=== PATIENT | male | born 1950 | race African-American/Black ===

== ENCOUNTER 2016-11-23 11:17 | Observation (INO) | payer MEDICARE, MEDICAID ==
[2016-11-23 12:14] LABS: #Eosinphils 0.1 thou/uL (0.0-0.7); #Monocytes 0.4 thou/uL (0.11-0.59); #Neutrophils 2.7 thou/uL (1.40-6.50); %Basophils 0.5 % (0.0-1.0); %Eosinophils 1.8 % (0.0-10.0); %Lymphocytes 24.8 % (21.0-51.0); %Monocytes 8.6 % (0.0-10.0); Hematocrit 37.9 % (42.0-52.0); Mean Platelet Volume 7.4 fL (7.4-10.4); Red Blood Cell (RBC) Count 3.85 mill/uL (4.70-6.10); White Blood Cell (WBC) Count 4.2 thou/uL (4.8-10.8)
[2016-11-23 12:30] LABS: ALT (SGPT) 13 U/L (8-55); AST (SGOT) 21 U/L (5-34); Alkaline Phosphatase 49 U/L (40-150); Anion Gap 13 mmol/L (10-20); BUN (Urea Nitrogen) 12 mg/dL (8.4-25.7); Bilirubin, Total 0.4 mg/dL (0.2-1.2); Calc. Creatinine Clearance 0 mL/min (70-130); Calcium 9.1 mg/dL (7.8-10.44); Carbon Dioxide 23 mmol/L (23-31); Chloride 104 mmol/L (98-107); Estimated GFR-MDRD Greater than 90; Globulin 2.9 g/dL (2.4-3.5); Protein, Total 6.5 g/dL (5.8-8.1)
[2016-11-23 13:26] LABS: Bilirubin Negative (Negative); Blood, Urine Negative (Negative); Glucose, Urine (Dipstick) Negative (Negative); Ketone, Urine Negative (Negative); Nitrite Negative (Negative); Protein, Urine (Dipstick) Negative (Neg-Trace)
[2016-11-23 13:36] LABS: Amphetamine Not Detected (NotDetected); Methadone Not Detected (NotDetected); Methamphetamine Not Detected (NotDetected)
[2016-11-23 14:13] LABS: Troponin I Less than 0.010 ng/mL (< 0.028)
--- NOTE | 2016-11-23 15:03 | RAD ---
PORTABLE CHEST: History: Syncope. FINDINGS: Lungs are clear. No infiltrate. Heart and mediastinum appear normal. IMPRESSION: No acute abnormality identified. POS: [facility]
[2016-11-23 15:25] LABS: Troponin I Less than 0.010 ng/mL (< 0.028)
[2016-11-23 17:51] VITALS: BMI 18.8
[2016-11-23] MEDS ORDERED: Multivitamins, Adult 10 ML, Folic Acid 1 MG, Thiamine HCl 100 MG in Dextrose 5 %-0.45 %... IV SCH ×4 (18:00)
[2016-11-23 18:45] LABS: Troponin I Less than 0.010 ng/mL (< 0.028)
[2016-11-23] MEDS: Famotidine 20 MG TAB PO SCH (21:12)
[2016-11-23 21:41] LABS: Troponin I Less than 0.010 ng/mL (< 0.028)
[2016-11-23] MEDS: Sodium Chloride 0.9% 1,000 ML IV SCH (23:34)
[2016-11-24 05:01] LABS: Hematocrit 39.6 % (42.0-52.0); Mean Platelet Volume 7.9 fL (7.4-10.4); Neutrophil 44 % (42-75); Reactive Lymphocytes 2 % (0-10); Red Blood Cell (RBC) Count 3.98 mill/uL (4.70-6.10); White Blood Cell (WBC) Count 3.6 thou/uL (4.8-10.8)
[2016-11-24 05:25] LABS: ALT (SGPT) 13 U/L (8-55); AST (SGOT) 24 U/L (5-34); Alkaline Phosphatase 47 U/L (40-150); Anion Gap 12 mmol/L (10-20); BUN (Urea Nitrogen) 8 mg/dL (8.4-25.7); Calc. Creatinine Clearance 83 mL/min (70-130); Calcium 9.3 mg/dL (7.8-10.44); Carbon Dioxide 27 mmol/L (23-31); Chloride 106 mmol/L (98-107); Estimated GFR-MDRD Greater than 90; Globulin 2.7 g/dL (2.4-3.5); Magnesium 1.8 mg/dL (1.6-2.6); Phosphorus 3.6 mg/dL (2.3-4.7); Protein, Total 6.2 g/dL (5.8-8.1)
--- NOTE | 2016-11-24 06:35 | HP-2 ---
DATE OF ADMISSION: 11/23/2016 DATE OF SERVICE: 11/23/2016 ADMITTING ATTENDING: Dr. Madhavi Cuevas. LOCATION: [place], [place]. COSIGNER: Madhavi Cuevas DO PATIENT'S CODE STATUS: FULL. PRIMARY CARE PHYSICIAN: City carlos. ATTENDING PHYSICIAN: Madhavi Cuevas DO RESIDENT PHYSICIAN: Dr. Iron Mccain. HISTORIAN: Patient, EMS records, ER physician, [facility] staff. CHIEF COMPLAINT: \\\\"I passed out\\\\" found down by [facility] staff. HISTORY OF PRESENT ILLNESS: The patient is a 66-year-old male with a past medical history of schizo phrenia, who presented after being found down outside of the [facility] facility. Per [facility] staff, patient was making sonorous type breath sounds, slumped over, leaning against the wall when he was found. There was concern that the patient had stopped breathing temporarily. The patient reports that he f elt \\\\"cold sweats\\\\" and sat down and does not remember much after that. Additionally, he reports a flutter type feeling/pain in his chest. He rates the severity as \\\\"a little.\\\\" Per ER and EMS, he was down for reportedly 1 to 2 minutes and slowly gained consciousness. There was no ACLS or BL S was performed. No loss of bowel or bladder function. He denies nausea, vomiting, diarrhea, const ipation, change in vision. He reports some shortness of breath, mild chest pain, and reports some p ost-episode weakness. PAST MEDICAL HISTORY: Schizophrenia. PAST SURGICAL HISTORY: Unknown intra-abdominal surgery. ALLERGIES: No known drug allergies. MEDICATIONS: 1. Cogentin/benztropine 2 mg. 2. Invega 156 mg IM every 4 weeks. 3. Inderal 40 mg t.i.d. FAMILY HISTORY: Unknown. SOCIAL HISTORY: Patient has an approximately 80 pack year history. He reports that he drinks 4 to 5 beers a day for the last 40 years. Patient reports smoking \\\\"crack drugs\\\\" and taking pills. O ccupation: Patient states he works at \\\\"different jobs.\\\\" Marital status: Single. Number of ch ildren: One, . REVIEW OF SYSTEMS: General: Patient denies fever, chills, night sweats, and fatigue. Eyes: Patie nt denies vision changes. ENT: The patient denies nasal congestion or rhinorrhea. Respiratory: D enies cough or congestion. Complains of shortness of breath. Cardiovascular: Patient complains of chest pain, palpitations. Denies edema. Gastrointestinal: The patient denies nausea, vomiting, d iarrhea, constipation, abdominal pain. Genitourinary: The patient denies incontinence, dysuria. C omplains of polyuria. Musculoskeletal: Patient complains of pain. Denies tenderness or stiffness. Neuro: Patient complains of weakness and syncopal episode. Denies numbness. PHYSICAL EXAMINATION: VITAL SIGNS: On arrival, patient's blood pressure 131/87, pulse 75, respirations 18, T-max 98.1, pu lse oximetry 97 on room air, current weight 70.3 kilograms. GENERAL: Patient in no acute distress, well-developed, well-nourished. EYES: Pupils are equal, round, and reactive to light and accommodation. Extraocular muscles intact . Conjunctivae injected. ENT: Left TM, cerumen impaction. Right TM, pearly kumar without bulging or erythema. Oropharynx is within normal limits. NECK: Supple. No lymphadenopathy, no thyromegaly. CARDIOVASCULAR: Heart regular rate and rhythm. No murmurs or gallops. Radial pulses and pedal pul ses 2+. RESPIRATORY: Normal effort. Clear to auscultation bilaterally. No wheezing, rales, or rhonchi. N o retractions. SKIN: Warm and dry. No cyanosis. ABDOMEN: Soft and nontender. Normoactive bowel sounds in all 4 quadrants without masses or distent ion. EXTREMITIES: No clubbing, no cyanosis, no edema. MUSCULOSKELETAL: Structures within normal limits. Tone within normal limits. Muscular strength is 5/5 bilaterally. Patient has full range of motion of all extremities. NEURO: There are no focal deficits. Sensation is within normal limits. Cranial nerves II through XII are intact. GCS 15. PSYCHIATRIC: Patient has elevated mood. LABORATORY DATA AND DIAGNOSTIC STUDIES: White blood cells 4.2, hemoglobin 12.7, hematocrit 37.9, pl atelets 166. Sodium 136, potassium 4.2, chloride 104, bicarbonate 23, BUN 12, creatinine 0.89, gluc ose 97, calcium 91, total protein 6.5, albumin 3.6, AST 21, ALT 13, alkaline phosphatase 49, total b ilirubin 0.4, MCV is 98.6, CK is 453, CK-MB is 3.0. Troponins are less than 0.010. EKG showed normal sinus rhythm. Chest x-ray showed no acute cardiothoracic process. Urine drug screen was positive for cocaine. ASSESSMENT AND PLAN: 1. Syncope. Admit the patient to telemetry. Repeat cardiac enzymes x3. We will check a magnesium and phosphorus in the morning. Echo ordered in the morning and pending. 2. History of alcohol use. The patient will be admitted with ASE protocol, banana bag x1, 200 mL p er hour. Check folic acid and B12 in the morning. 3. History of drug abuse you. UDS positive for cocaine. Check RPR, human immunodeficiency virus, and hepatitis panel. Counseled on cessation. 4. Dehydration. CK is 453. Start normal saline at 100 mL per hour. Recheck a CK in the morning. Repeat CBC and CMP in the morning. 5. Macrocytic anemia. Check B12 and folate. 6. Gastrointestinal and deep venous thrombosis prophylaxis. The patient will be started on Pepcid 20 b.i.d. p.o. and placed in SCD compression.
[2016-11-24] MEDS: Famotidine 20 MG TAB PO SCH (08:34)
[2016-11-24] MEDS: Sodium Chloride 0.9% 1,000 ML IV SCH (08:39)
--- NOTE | 2016-11-24 08:47 | PDOC.FM ---
- Subjective Subjective: Pt denies cp, sob, nvdc. He states he feels good and is just hungry. No acute events overnight and heart monitor has shown normal sinus rhythm throughout the night. - Objective Vital Signs & Weight: Vital Signs (12 hours) Temp Pulse Resp BP BP BP BP 11/24/16 07:10 98.6 F 68 16 110/68 11/24/16 04:40 98.8 F 73 16 114/70 114/70 11/23/16 23:35 123/58 L 11/23/16 23:11 98.6 F 88 16 123/58 L 11/23/16 21:10 98.4 F 70 16 126/70 Pulse Ox 11/24/16 07:10 99 11/24/16 04:40 100 11/23/16 23:35 11/23/16 23:11 99 11/23/16 21:10 Weight Weight 69.49 kg I&O: 11/23/16 11/24/16 11/25/16 06:59 06:59 06:59 Intake Total 2347 Output Total 1000 Balance 1347 Result Diagrams: 11/24/16 03:45 11/24/16 03:45 <Iron Mccain - Last Filed: 11/24/16 08:46> - Objective Vital Signs & Weight: Vital Signs (12 hours) Temp Pulse Resp BP BP BP Pulse Ox 11/24/16 08:34 98.6 F 68 16 11/24/16 08:00 110/68 11/24/16 07:10 98.6 F 68 16 110/68 99 11/24/16 04:40 98.8 F 73 16 114/70 114/70 100 Weight Weight 69.49 kg I&O: 11/23/16 11/24/16 11/25/16 06:59 06:59 06:59 Intake Total 2347 Output Total 1000 Balance 1347 Result Diagrams: 11/24/16 03:45 11/24/16 03:45 <Duarte Nunez - Last Filed: 11/24/16 12:00> Phys Exam - Physical Examination Constitutional: NAD HEENT: moist MMs conjunctival injection Respiratory: no wheezing, no rales, no rhonchi, clear to auscultation bilateral Cardiovascular: RRR, no significant murmur, no rub Gastrointestinal: soft, non-tender, no distention, positive bowel sounds Musculoskeletal: no edema, pulses present Neurological: non-focal, moves all 4 limbs <Iron Mccain - Last Filed: 11/24/16 08:46> Dx/Plan (1) Syncope Code(s): R55 - SYNCOPE AND COLLAPSE Status: Acute (2) Drug abuse Code(s): F19.10 - OTHER PSYCHOACTIVE SUBSTANCE ABUSE, UNCOMPLICATED Status: Acute (3) Alcohol abuse Code(s): F10.10 - ALCOHOL ABUSE, UNCOMPLICATED Status: Acute - Plan Plan: troponins negative x3 nsr rhythm on monitor w/o st changes negative orthostatics likely 2/2 volume depletion w h/o drug use and elevated CK continue NS @ 100mls/hr ASE protocol for h/o alcohol use Echo taken and results pending vitals stable HIV, RPR Hep panel pending for h/o drug abuse macrocytic anemia, folate and b12 normal, stable <Iron Mccain - Last Filed: 11/24/16 08:46> Attending Addendum - Attending Addendum I personally evaluated the patient and discussed the management with Dr. Mccain I agree with the History, Examination, Assessment and Plan documented above with any addition or exceptions noted below. Patient back to baseline. Syncopal episode likely due to withdrawl of cocaine and dehydration. Likely d/c home today and f/u with ECHO results outpatient. <Duarte Nunez - Last Filed: 11/24/16 12:00>
[2016-11-24] MEDS ORDERED: Aspirin 81 mg Enteric Coated Tablet PO SCH (09:00)
[2016-11-24 12:09] VITALS: BP 109/67; TEMP 98.3
--- NOTE | 2016-11-25 13:15 | DIS-2 ---
DATE OF SERVICE: 11/24/2016 LOCATION: [place], [place]. COSIGNER: Duarte Nunez MD RESIDENT PHYSICIAN: Iron Mccain DO ADMITTING ATTENDING: Roxie Lewis MD DISCHARGE ATTENDING: Duarte Nunez MD CONSULTS: None. PROCEDURES: 1. Chest x-ray 11/23/2016 showed no acute abnormality. 2. Echocardiogram report performed on 11/24/2016 showed ejection fraction of 40%-45%, normal right ventricular size and function, normal heart structures and mild tricuspid regurgitation. PRIMARY DIAGNOSIS: Syncope. SECONDARY DIAGNOSES: 1. Altered mental status. 2. Schizophrenia. 3. Drug abuse. 4. Alcohol abuse. DISCHARGE MEDICATIONS: 1. Cogentin 2 mg tab. 2. Invega 156 mg IM every 28 days. DISCONTINUED MEDICATIONS: None. HISTORY OF PRESENT ILLNESS/HOSPITAL COURSE: The patient is a 66-year-old male who originally presen juanita on 11/23/2016 after being found outside [facility] facility on the ground unresponsive. There is conc kamron with the staff that the patient had stopped breathing. The patient reports he \\\\"passed out.\\\\" Per [facility] staff, patient was making sonorous type breath sounds. He was slumped over and leaning a gainst the wall when he was found. Prior to the episode, the patient reported \\\\"cold sweats\\\\" and a flutter type sensation in his chest. Per EMS and ER reports, he was down to approximately 1-2 mi nutes and regained consciousness in the ambulance. There is no loss of bowel or bladder function. He denied nausea, vomiting, diarrhea, constipation, chest pain. On original admission, the troponin s and cardiac enzymes were negative, less than 0.010 and CK-MB was 3. Urine drug screen was positive for cocaine and the patient does admit to smoking \\\\"a crack rock.\\\\" The patient was monitored on telemetry overnight and echocardiogram was performed. The event han tor showed no abnormal rhythms throughout the 24-hour period. Patient's RPR was nonreactive. Hepatitis A antibody total was positive. Hepatitis B surface antige n was negative. Hepatitis B surface antibody negative, hepatitis B core total antibody was nonreact mynor, hepatitis B surface antibody was nonreactive. HIV 1 and 2 antibodies were nonreactive. The chong jacob's hepatitis B surface antibody index was 0.59 placing the patient in a nonimmune hepatitis B s tatus. DISPOSITION: The patient left the hospital in stable condition. DISCHARGE INSTRUCTIONS: 1. Location: Home. 2. Diet: Heart healthy. 3. Activity: As tolerated. 4. Followup: Follow up with the primary care provider in 7-10 days. 5. Followup with [facility] as scheduled.
--- NOTE | 2016-11-27 16:57 | EKG ---
Test Reason : Blood Pressure : / mmHG Vent. Rate : 074 BPM Atrial Rate : 074 BPM P-R Int : 158 ms QRS Dur : 094 ms QT Int : 386 ms P-R-T Axes : 076 065 075 degrees QTc Int : 428 ms Normal sinus rhythm Normal ECG Confirmed by GORDO ASTUDILLO, MEJIA Garcia (17), mapping editor IDA CONNELL ([id number]) on 11/27/2016 4:56:55 PM Referred By: Confirmed By:MEJIA CARO MD
== END 2016-11-24 15:45 | disposition home or self-care (01) ==
LOC: ERS 11:17 → 2SW 14:31
PROVIDERS: ADMIT Family Medicine; ATTEND Family Medicine
DX: R55 Syncope and collapse (principal); R41.82 Altered mental status, unspecified; F20.9 Schizophrenia, unspecified; F10.10 Alcohol abuse, uncomplicated; F14.10 Cocaine abuse, uncomplicated; F17.210 Nicotine dependence, cigarettes, uncomplicated; Z79.899 Other long term (current) drug therapy
CPT/HCPCS: 71010; 80053 ×2; 80061; 80306; 81003; 82140; 82550; 82553; 82607; 82746; 83735; 84100; 84484 ×2; 85007; 85025; 85027; 86704; 86706; 86708; 86780; 86803; 87340; 87389; 93005; 93306; 96361; 96365; 96366; 99285; G0378; 36415; G8996-GN-CI; G8997-GN-CI; J3411; J7042

== ENCOUNTER 2018-10-23 12:11 | Emergency (ER) | payer MEDICARE, MEDICAID | END 2018-10-23 14:30 | disposition home or self-care (01) | LOC: ERS 12:11 | DX: F10.10 Alcohol abuse, uncomplicated (principal); F17.220 Nicotine dependence, chewing tobacco, uncomplicated; F14.10 Cocaine abuse, uncomplicated; F12.10 Cannabis abuse, uncomplicated | CPT/HCPCS: 94760 ==

== ENCOUNTER 2019-11-26 12:20 | Inpatient (IN) | payer MEDICARE, MEDICAID, OTHER ==
[2019-11-26 13:11] LABS: #Lymphocytes 0.5 thou/uL (1.20-3.40); #Monocytes 0.4 thou/uL (0.11-0.59); %Eosinophils 0.2 % (0.0-10.0); %Lymphocytes 12.5 % (21.0-51.0); %Monocytes 10.9 % (0.0-10.0); %Neutrophils 76.4 % (42.0-75.0); Hemoglobin 15.3 g/dL (14.0-18.0); Mean Corpuscular HGB CONC 34.4 g/dL (32.0-36.0); Mean Corpuscular Volume 93.1 fL (78.0-98.0); Mean Platelet Volume 8.6 fL (7.4-10.4); Platelet Count 206 thou/uL (130-400); RBC Distribution Width 11.3 % (11.5-14.5); Red Blood Cell (RBC) Count 4.79 mill/uL (4.70-6.10); White Blood Cell (WBC) Count 3.9 thou/uL (4.8-10.8)
[2019-11-26] MEDS ORDERED: Multivitamins, Adult 10 ML, Thiamine HCl 100 MG, Folic Acid 1 MG in Dextrose 5 %-0.45 %... IV SCH (13:15)
--- NOTE | 2019-11-26 13:30 | CT ---
CT head noncontrast HISTORY: Altered mental status. COMPARISON: 11/11/2008. FINDINGS: There is no evidence of acute intracranial hemorrhage or infarct. Mild chronic ischemic sma ll vessel disease most noticeable at the left frontal periventricular white matter. There is no mass effect or shift of midline structures. Mucosal thickening noted within the left sphenoid sinus. IMPRESSION : No acute intracranial abnormalities are demonstrated.
[2019-11-26 13:42] LABS: ALT (SGPT) 35 U/L (8-55); AST (SGOT) 50 U/L (5-34); Acetaminophen Less than 6.0 mcg/mL (10.0-30.0); Albumin 4.1 g/dL (3.4-4.8); Alcohol Less than 10 mg/dL (Less than 10); Alkaline Phosphatase 65 U/L (40-110); Anion Gap 16 mmol/L (10-20); BUN (Urea Nitrogen) 19 mg/dL (8.4-25.7); Bilirubin, Total 1.2 mg/dL (0.2-1.2); Calc. Creatinine Clearance 0 mL/min (70-130); Calcium 9.9 mg/dL (7.8-10.44); Carbon Dioxide 29 mmol/L (23-31); Chloride 88 mmol/L (98-107); Estimated GFR-MDRD 90; Globulin 3.4 g/dL (2.4-3.5); Glucose 133 mg/dL (80-115); Potassium 5.3 mmol/L (3.5-5.1); Protein, Total 7.5 g/dL (5.8-8.1); Salicylate Less than 8.0 mg/dL (15.0-30.0); Sodium 128 mmol/L (136-145)
[2019-11-26] MEDS ORDERED: Calcium Carbonate 500 MG ChewTAB PO PRN (15:27)
[2019-11-26] MEDS ORDERED: Guaifenesin DM 100-10/5 ML UDCUP PO PRN (15:27)
[2019-11-26] MEDS ORDERED: Acetaminophen 325 MG TAB PO PRN (15:27)
[2019-11-26] MEDS ORDERED: Bisacodyl 10 MG SUPP PR PRN (15:27)
[2019-11-26] MEDS ORDERED: Senokot S 8.6-50 MG TAB PO PRN (15:27)
--- NOTE | 2019-11-26 16:02 | HP ---
REASON FOR ADMISSION: Confusion, not eating or drinking for the last month and a half now, lethargy. HISTORY OF PRESENTING ILLNESS: Please note majority of this history is obtained by talking to ER physician, Dr. Traylor, as the patient is not a good historian. The patient is currently residing in [facility] for the last 2 months. He has not been eating or drinking from last month and a half and was also slow to respond there. As this was progressively getting worse, the patient was transferred here to the emergency room. PAST MEDICAL AND SURGICAL HISTORY: From prior records here, the patient has had history of schizophrenia and prior laparotomy. CURRENT MEDICATIONS: The patient does not recall any of his current medications. He states he is not taking any at the [facility] facility. Prior to which, he was filling his prescription [facility] in [place]. He is unable to give me an exact name for his pharmacy. We will try to obtain the same from [facility], who likely has seen him before. ALLERGIES: NO KNOWN DRUG ALLERGIES. PERSONAL HISTORY: Per prior records, the patient has used crack cocaine. Smoked before. FAMILY HISTORY: Says he is not , but per prior records, he has had a child, who is . CODE STATUS: Full. REVIEW OF SYSTEMS: Cannot be obtained accurately as the patient is not fully oriented. PHYSICAL EXAMINATION: GENERAL: The patient is a 69-year-old male, who is currently not in any acute distress. VITAL SIGNS: Blood pressure 124/86, pulse 90 per minute, respiratory rate 20 per minute, temperature 98.5 degrees Fahrenheit, and saturating 95% on room air. NECK: Supple. No elevated JVD. HEENT: Eyes; extraocular muscles intact. Pupils reacting to light. Oral cavity, mucous membranes are dry. No exudates or congestion. CARDIOVASCULAR SYSTEM: S1 and S2 heard. Regular rhythm. RESPIRATORY: Air entry 1+ bilateral. No rales or rhonchi. ABDOMEN: Soft. The patient appears to have a ventral hernia with prior surgical scar in the midline. No rigidity or guarding. EXTREMITIES: No peripheral edema or calf tenderness. VASCULAR SYSTEM: Peripheral pulses 1+ bilateral. No ischemic ulcers or gangrene. CENTRAL NERVOUS SYSTEM: No gross focal deficits noted. The patient is not fully oriented, but moves all 4 extremities. PSYCHIATRIC SYSTEM: No obvious hallucinations or delusions. LABORATORY DATA: CT brain without contrast done showed no acute intracranial abnormality. EKG done shows normal sinus rhythm at 89 beats per minute. There is poor R-wave progression seen. There are T inversions seen in V2 and V3. White count of 3.9, H and H 15 and 44, platelet count 206 with 76% neutrophils. Sodium 128, potassium 5.3, serum bicarb 29, BUN 19, creatinine 1.0, serum glucose 133. Lactic acid 2.3, AST 50, ALT 35. Plasma alcohol less than 10. CLINICAL IMPRESSION AND PLAN: The patient will be under observation on medical floor for progressive lethargy and confusion with poor oral intake from last 6 weeks [facility] so at the [facility]. We will also try to obtain his home medication list in view of his history of schizophrenia. The patient has had positive drug screen for cocaine until 2017 on our records. He appears to have moderate dehydration. He will be placed on lactated Ringer's at 100 mL per hour. We will obtain dietary consultation. He will be on a regular diet with chopped food as the patient has no teeth and does not have dentures. We will also place him on Megace 40 mg twice daily to stimulate appetite. A KUB x-ray to rule out any bowel obstruction as the patient has had prior abdominal surgery. His abdomen is not distended nor does he have any pain at present. We will obtain PT/OT evaluations as well to see if he can ambulate well. Job ID: [id number] [facility]
[2019-11-26 17:15] VITALS: BMI 17.6
[2019-11-26 17:42] LABS: Lactic Acid 1.7 mmol/L (0.5-2.2)
[2019-11-26] MEDS: Ondansetron PF 4 MG/2 ML Vial IVP PRN (17:44)
--- NOTE | 2019-11-26 18:04 | RAD ---
KUB: Date: 11-26-2019 PROVIDED CLINICAL HISTORY: Poor oral intake. FINDINGS: Comparison 06-01-16. There are several ectatic gas filled small bowel in the left midabdomen, and an overall nonspecific g as pattern. Stool and gas is seen within the colon. Multiple phleboliths overlies the pelvis. No radi ographically apparent urinary tract calculi. The single view nature of this examination is not sensit mynor for detection of pneumoperitoneum. The visualized lung bases appear clear. A cutaneous staple ove rlies the right upper quadrant. IMPRESSION: Nonspecific bowel gas pattern. POS: [facility]
[2019-11-26] MEDS: Megestrol Acetate 40 MG TAB PO SCH (20:59)
[2019-11-26] MEDS: Famotidine 20 MG TAB PO SCH (20:59)
[2019-11-27] MEDS: Ondansetron PF 4 MG/2 ML Vial IVP PRN ×2 (04:09→19:39)
[2019-11-27 05:40] LABS: #Lymphocytes 0.4 thou/uL (1.20-3.40); #Monocytes 0.1 thou/uL (0.11-0.59); #Neutrophils 0.9 thou/uL (1.40-6.50); %Basophils 0.2 % (0.0-1.0); %Eosinophils 0.3 % (0.0-10.0); %Lymphocytes 28.6 % (21.0-51.0); %Monocytes 8.2 % (0.0-10.0); %Neutrophils 62.6 % (42.0-75.0); Hemoglobin 13.5 g/dL (14.0-18.0); Mean Corpuscular HGB CONC 33.6 g/dL (32.0-36.0); Mean Corpuscular Hemoglobin 31.1 pg (27.0-31.0); Mean Corpuscular Volume 92.8 fL (78.0-98.0); Mean Platelet Volume 8.2 fL (7.4-10.4); Platelet Count 186 thou/uL (130-400); RBC Distribution Width 11.1 % (11.5-14.5); Red Blood Cell (RBC) Count 4.32 mill/uL (4.70-6.10); White Blood Cell (WBC) Count 1.5 thou/uL (4.8-10.8)
[2019-11-27 06:03] LABS: Anion Gap 13 mmol/L (10-20); BUN (Urea Nitrogen) 18 mg/dL (8.4-25.7); Calc. Creatinine Clearance 80 mL/min (70-130); Calcium 9.2 mg/dL (7.8-10.44); Carbon Dioxide 30 mmol/L (23-31); Chloride 91 mmol/L (98-107); Estimated GFR-MDRD Greater than 90; Glucose 153 mg/dL (80-115); Potassium 3.5 mmol/L (3.5-5.1); Sodium 130 mmol/L (136-145)
[2019-11-27] MEDS ORDERED: Metoclopramide HCl 10 MG/2 ML VIAL IVP PRN (06:11)
[2019-11-27] MEDS: Lactated Ringer's 1,000 ML IV SCH ×3 (07:49→22:04)
[2019-11-27] MEDS: Megestrol Acetate 40 MG TAB PO SCH ×2 (09:06→20:25)
[2019-11-27] MEDS: Enoxaparin Sodium 40 MG/0.4 ML SYRINGE SC SCH (09:06)
[2019-11-27] MEDS: Famotidine 20 MG TAB PO SCH ×2 (09:06→20:25)
[2019-11-27] MEDS ORDERED: Iopamidol 370 76% 100 ML VIAL ONE (10:55)
--- NOTE | 2019-11-27 12:33 | CT ---
CT OF THE ABDOMEN AND PELVIS WITH IV CONTRAST INDICATION: Schizophrenia, loss of appetite and lethargy COMPARISON: CT the abdomen and pelvis with contrast dated June 01, 2016 FINDINGS: ABDOMEN: Lung bases: There are small bilateral pleural effusions. There is airspace disease of the left lower lobe. Liver: No focal lesion. Gallbladder: Normal appearing. Pancreas: Normal. Adrenal glands: Normal. Spleen: Normal. Kidneys and ureters: Normal. No hydronephrosis. Vasculature: There are mild vascular calcifications seen involving the visualized vasculature. Lymph nodes:No lymphadenopathy. Free fluid in abdomen:No free fluid is evident. PELVIS: Small and large bowel: There are prominent dilated loops of small bowel with a suggested transition z one in the anterior mid abdomen on image 38 of the coronal series. There is some visualization of a dilated loop of jejunum just proximal to the transition zone. There is a moderate amount of retained stool and gas within the colon. There is postsurgical change of a partial small bowel resection the right lower quadrant with anastomosis. Appendix:Not definitely seen Bladder: Moderately distended Rectal and perirectal soft tissues:Prominent amount retained stool Reproductive structures: Prostate is enlarged measuring 7 cm Free fluid in pelvis: No free fluid is evident. Lymphadenopathy pelvis: No lymphadenopathy is evident. Osseous structures: No acute osseous abnormality. No destructive osteolytic or osteoblastic lesion i s identified. There is scattered degenerative and osteoarthritic changes. Soft tissues:Diffuse anasarca. There is an anterior upper midline abdominal wall hernia containing un obstructed portions of the transverse colon. IMPRESSION: 1. Findings suspicious for a moderate grade partial small bowel obstruction with a transition zone se en within the upper mid abdomen, left of midline. 2. Moderate distention of the bladder with prostate enlargement. Recommend consideration for Petty ca theter placement. 3. Left lower lobe airspace disease suspicious for pneumonia or aspiration. There are small bilateral pleural effusions. 4. Mild anasarca.
--- NOTE | 2019-11-27 12:44 | PDOC.HOSPP ---
- Subjective Encounter Date: 11/27/19 Encounter Time: 10:00 Subjective: feels nauseous this am no abd pain or sob - Objective Vital Signs & Weight: Vital Signs (12 hours) Temp Pulse Resp BP Pulse Ox 11/27/19 11:06 99.9 F H 89 17 117/66 96 11/27/19 08:00 98 11/27/19 07:52 98.7 F 89 18 134/74 98 11/27/19 04:11 97.3 F L 75 18 153/81 H 100 Weight Admit Weight 143 lb Weight 143 lb I&O: 11/26/19 11/27/19 11/28/19 06:59 06:59 06:59 Intake Total 250 Balance 250 Result Diagrams: 11/27/19 05:04 11/27/19 05:04 Hospitalist ROS - Medication Medications: Active Medications Generic Name Dose Route Start Last Admin Trade Name Freq PRN Reason Stop Dose Admin Enoxaparin Sodium 40 mg 11/27/19 09:00 11/27/19 09:06 Enoxaparin Sodium 40 Mg/0.4 Ml Syringe SC Not Given 0900 OLGA Famotidine 20 mg 11/26/19 21:00 11/27/19 09:06 Famotidine 20 Mg Tab PO Not Given BID OLGA Lactated Ringer's 1,000 mls @ 70 mls/hr 11/27/19 07:45 11/27/19 07:49 Lactated Ringer's IV 1,000 mls .[id number] OLGA Administration Megestrol Acetate 40 mg 11/26/19 21:00 11/27/19 09:06 Megestrol Acetate 40 Mg Tab PO Not Given BID OLGA Metoclopramide HCl 10 mg 11/27/19 06:11 11/27/19 06:23 Metoclopramide Hcl 10 Mg/2 Ml Vial IVP 10 mg Q6H PRN Administration Nausea/Vomiting Ondansetron HCl 4 mg 11/26/19 15:27 11/27/19 04:09 Ondansetron Pf 4 Mg/2 Ml Vial IVP 4 mg Q6H PRN Administration Nausea/Vomiting - Exam General Appearance: awake alert Eye: anicteric sclera ENT: no oropharyngeal lesions, dry oral mucosa Neck: supple, no JVD Heart: RRR, no gallops Respiratory: no wheezes, no rales Gastrointestinal: soft, no guarding, no rigidity Extremities: no cyanosis, no edema Neurological: cranial nerve grossly intact, no focal deficits Hosp A/P (1) SBO (small bowel obstruction) Code(s): K56.609 - UNSP INTESTNL OBST, UNSP TO PARTIAL VERSUS COMPLETE OBST Status: Acute (2) Acute metabolic encephalopathy Code(s): G93.41 - METABOLIC ENCEPHALOPATHY Status: Acute (3) FTT (failure to thrive) in adult Status: Chronic (4) Schizoaffective disorder Code(s): F25.9 - SCHIZOAFFECTIVE DISORDER, UNSPECIFIED Status: Chronic Qualifiers: Schizoaffective disorder type: unspecified - Plan CT abd results noted, shows signs of sbo, will consult gen surgery, keep him npo iv fluids change status to inpatient was on depot antipsychotic qmonthly shot with cogentin bid (has not taken it for 2 months now) hemostable no bm from yesterday poor historian, needs repeated prompts to get any answer
[2019-11-27 13:48] LABS: SARS-CoV-2 MS2 Positive; SARS-CoV-2 N Gene Positive; SARS-CoV-2 S Gene Negative; SARS-CoV-2 by NAA DETECTED (NotDetected); SARS-CoV-2 orf1ab Positive
--- NOTE | 2019-11-27 16:29 | RAD ---
Chest one view HISTORY: Pneumonia. COMPARISON: 11/23/2016. FINDINGS: Cardiac silhouette is magnified by projection. Pulmonary vasculature is unremarkable. Mediastinum is midline. No lobar consolidation or evidence of pneumothorax. Degenerative changes are apparent throughout the thoracic spine and shoulders. IMPRESSION : No active cardiopulmonary abnormalities are demonstrated.
--- NOTE | 2019-11-27 17:51 | RAD ---
KUB: 11/27/19 PROVIDED CLINICAL HISTORY: Abdominal pain. FINDINGS: Comparison is made with the examination dated 11/26/19. Further dilatation of gaseous distended small bowel loops in the left mid abdomen. As discussed on recently performed CT examination, this suggests small bowel obstruction. Please see that report. Contrast material is seen within the bladder. Gas a nd stool are seen within the colon. The supine nature of the examination is not sensitive for detecti on of pneumoperitoneum. IMPRESSION: As above. POS: [facility]
--- NOTE | 2019-11-27 21:06 | PDOC.BPN ---
- Brief Progress Note Encounter Date: 11/27/19 Encounter Time: 20:30 Patient was seen this evening for evaluation of small bowel obstruction. Patient reported "I'm feeling better." He refused evaluation by general surgery and asked for us to "come back later." Nursing reported patient has a bout of large volume bilious vomiting before my evaluation. He is NPO with IVF. Unable to complete physical exam as patient refusing. parole officer at bedside reports patient is able to refuse care at this time. Patient agrees to be seen by general surgery in the AM or again this evening if his condition worsens. We will increase his IVF rate to 100 mL/hr. Keep NPO. Dr. Sanchez was updated on the patient and agrees with plan. Maggie Bravo PA-C Trauma Surgery
--- NOTE | 2019-11-27 21:43 | CON ---
DATE OF CONSULTATION: 11/27/2019 REASON FOR CONSULTATION: COVID and number of other issues. HISTORY OF PRESENT ILLNESS: A 69-year-old, who suffers from schizophrenia. He was admitted in 2016 to this hospital and it apparently due to an unintentional overdose of propranolol but no suicidal ideation and he obviously had sinus bradycardia and some encephalopathy associated with it. Subsequently, one year later, he had altered mental state and basically, he was found on the ground unresponsive and looks like he was sleeping. No evidence of seizure activity was found. His urine drug screen was positive for cocaine. HIV negative. Hepatitis negative. He was released on Cogentin and Invega. This time, he looks like he was apprehended by the police and brought to the [facility] long term and it is not clear the rationale for doing that, but he has been there for the past 2 months with steady decline in his weight, not eating, so they brought him to the hospital here and BP was 120/87, pulse 90, respirations 20, and O2 saturations are 95%. He appeared confused, lethargic and right now, Mr. Crawford is shackled to the bed. He is cachectic and establishes eye contact very briefly. He is unable to provide any account of his subjected information, and I cannot obtain a review of systems. PAST MEDICAL HISTORY: Schizophrenia and that is the extent of his history. There is a reported history of epilepsy, was not verifiable. PAST SURGICAL HISTORY: I do not have any verifiable surgical history either. SOCIAL HISTORY: He apparently lives with family and drinks daily. Smokes as well. For the past 2 months, he is at [facility]. He was brought there by police and they dropped him there and they are trying to release him, but have not been very successful. ALLERGIES: NONE. CURRENT MEDICATIONS: 1. Dulcolax. 2. Tums. 3. Lovenox. 4. Megace. 5. Reglan. 6. Zofran. 7. Senokot. FAMILY HISTORY: I do not have any family history. PHYSICAL EXAMINATION: VITAL SIGNS: He has been afebrile since admission, BP 117/66, pulse 89, and respiratory rate 17. SKIN: There are areas of pressure damage to the presacral region, very shallow with fresh looking base. Peripheral IV access. He is voiding in the urinal/diaper. LYMPH: No lymphadenopathy. HEENT: Ocular movements conjugate. Sclerae are white. Pupils are 2 mm and reactive. Oral cavity; numerous missing teeth, almost all. Dentition is gone. Oral mucosa appears normal. No thrush. NECK: Supple. No jugular vein distention. LUNGS: Symmetric air entry. No crackles or wheezing. HEART: S1, S2. Regular rate. No S3 or S4. ABDOMEN: Soft. Does not appear to be tender. Little bit of distention in the mid abdominal area. Bowel sounds are present. No ascites. : Question of bladder distention. LABORATORY DATA: SARS-CoV was detected and his white cell count was 3.9, down to 1.5; hemoglobin 13.5; and platelets 186. He had 76% neutrophils, down to 62%. Sodium was 128, up to 130 and creatinine is 0.81. AST 50, ALT 35, albumin 4.1, and ammonia 22. Alcohol, acetaminophen, and salicylates; not detected. IMAGING DATA: Abdomen and pelvis CT from today with prominently dilated loops of small bowel with a suggested transition zone in the anterior mid abdomen, image 38. Moderate amount of retained stool and gas within the colon. The bladder was moderately distended. In the lungs, there was evidence of airspace disease, left side lower lobe. No chest x-ray has been done here at this time. ASSESSMENT: 1. Schizophrenia, poorly controlled. 2. Cachexia. 3. Small-bowel obstruction with transition zone. 4. Urinary retention with BPH. 5. SARS-CoV-2 antibody positive. DISCUSSION: Quite complex case, looks like he has been admitted to the [facility] long term by default due to the lack of any other resources for him to be admitted for proper psych evaluation. Now, he is SARS-CoV positive, probably acquired in long term now and in addition to that, he has the small bowel area obstruction, probably from adhesions and has urinary retention. I guess he will have to have surgical evaluation and need to repeat his postvoid residual scan to see if he is still retaining. In that case, he will need a Petty catheterization. Regarding the COVID, we will need to obtain a chest x-ray and inflammatory markers. At this moment, his O2 saturations are good in room air and he would merit any intervention in terms of antiviral or anti-inflammatory treatment at this moment, but this may change. The duration of illness is uncertain at this point. We do not have any possibility of determining with any precision how many days he has been ill from SARS-CoV-2 virus. Again, this is a seriously ill gentleman with severe psychiatric illness, who has been placed in the local long term obviously due to lack of other resources, he belongs in a medical/psych institution after his acute medical problems are cared for, not in long term, where he has been for 2 months now. Job ID: [id number] [employer] HEALTHCARERadha
[2019-11-28] MEDS: Ondansetron PF 4 MG/2 ML Vial IVP PRN (05:31)
[2019-11-28 06:05] LABS: Band 38 % (5-11); Hemoglobin 13.4 g/dL (14.0-18.0); Hypochromia SLIGHT = 6-15 cells (100X) (0-5/hpf); Lymphocytes 12 % (21-51); MDiff Complete? YES; Mean Corpuscular HGB CONC 32.1 g/dL (32.0-36.0); Mean Corpuscular Hemoglobin 29.8 pg (27.0-31.0); Mean Corpuscular Volume 92.8 fL (78.0-98.0); Mean Platelet Volume 8.6 fL (7.4-10.4); Monocytes 12 % (0-10); Neutrophil 38 % (42-75); Platelet Count 190 thou/uL (130-400); Platelet Morphology Comment Appears Adequate; RBC Distribution Width 11.3 % (11.5-14.5); Red Blood Cell (RBC) Count 4.51 mill/uL (4.70-6.10); White Blood Cell (WBC) Count 4.5 thou/uL (4.8-10.8)
[2019-11-28 06:11] LABS: Anion Gap 15 mmol/L (10-20); BUN (Urea Nitrogen) 23 mg/dL (8.4-25.7); Calc. Creatinine Clearance 82 mL/min (70-130); Calcium 9.5 mg/dL (7.8-10.44); Carbon Dioxide 26 mmol/L (23-31); Chloride 92 mmol/L (98-107); Estimated GFR-MDRD Greater than 90; Glucose 122 mg/dL (80-115); Magnesium 1.7 mg/dL (1.6-2.6); Potassium 3.9 mmol/L (3.5-5.1); Sodium 129 mmol/L (136-145)
[2019-11-28] MEDS: Lactated Ringer's 1,000 ML IV SCH ×3 (06:13→20:55)
[2019-11-28] MEDS: Enoxaparin Sodium 40 MG/0.4 ML SYRINGE SC SCH (08:16)
[2019-11-28] MEDS: Megestrol Acetate 40 MG TAB PO SCH (08:16)
[2019-11-28] MEDS: Famotidine 20 MG TAB PO SCH ×2 (08:16→20:55)
--- NOTE | 2019-11-28 11:10 | RAD ---
EXAM: XR Abdomen 2 View/1 View Cxr PROVIDED CLINICAL HISTORY: Small bowel obstruction. COMPARISON: Chest x-ray on 11/27/2019 and one view abdomen on 11/27/2019 FINDINGS: Mild increased interstitial densities are seen at the left lung base which may represent developing i nfectious process. There is no consolidation or pleural fluid seen. Cardiac silhouette and pulmonary vasculature are within normal limits. No free intraperitoneal gas is seen beneath the level of the hemidiaphragms. There are dilated fluid- filled loops of small bowel again seen in the left abdomen with suggestion of differential air-fluid levels. There is mild gaseous distention of the ascending and transverse colon. Multiple ph leboliths overlie the pelvis. Contrast previously seen urinary bladder is no longer visualized. Degenerative changes are seen in the spine. IMPRESSION: 1. Increased interstitial opacities left lung base which may be related to developing infectious proc ess. Follow-up evaluation is recommended. 2. Dilated loops of small bowel left abdomen with associated differential air-fluid levels concerning for partial small bowel obstruction. 3. Gaseous distention of the ascending and transverse colon.
--- NOTE | 2019-11-28 13:30 | PDOC.HOSPP ---
- Subjective Encounter Date: 11/28/19 Encounter Time: 08:00 Subjective: awake, is nauseous, vomited once doesn't complain of anything - Objective Vital Signs & Weight: Vital Signs (12 hours) Temp Pulse Resp BP 11/28/19 08:00 98.5 F 82 18 134/76 Weight Admit Weight 143 lb Weight 143 lb I&O: 11/27/19 11/28/19 11/29/19 06:59 06:59 06:59 Intake Total 250 2220 0 Output Total 300 1000 Balance 250 1920 -1000 Result Diagrams: 11/28/19 05:11 11/28/19 05:11 Hospitalist ROS - Medication Medications: Active Medications Generic Name Dose Route Start Last Admin Trade Name Freq PRN Reason Stop Dose Admin Enoxaparin Sodium 40 mg 11/27/19 09:00 11/28/19 08:16 Enoxaparin Sodium 40 Mg/0.4 Ml Syringe SC 40 mg 0900 OLAG Administration Famotidine 20 mg 11/26/19 21:00 11/28/19 08:16 Famotidine 20 Mg Tab PO Not Given BID OLGA Lactated Ringer's 1,000 mls @ 100 mls/hr 11/27/19 20:29 11/28/19 08:16 Lactated Ringer's IV 1,000 mls .Q10H OLGA Administration Ondansetron HCl 4 mg 11/26/19 15:27 11/28/19 05:31 Ondansetron Pf 4 Mg/2 Ml Vial IVP 4 mg Q6H PRN Administration Nausea/Vomiting - Exam General Appearance: awake alert, ill appearing Eye: PERRL, anicteric sclera ENT: no oropharyngeal lesions, dry oral mucosa Neck: supple, no JVD Heart: RRR, no murmur Respiratory: no wheezes, no rales Gastrointestinal: soft, non-tender, no guarding, no rigidity, distended Extremities: no cyanosis, no edema Neurological: cranial nerve grossly intact, no focal deficits Hosp A/P (1) SBO (small bowel obstruction) Code(s): K56.609 - UNSP INTESTNL OBST, UNSP TO PARTIAL VERSUS COMPLETE OBST Status: Acute (2) Acute metabolic encephalopathy Code(s): G93.41 - METABOLIC ENCEPHALOPATHY Status: Acute (3) FTT (failure to thrive) in adult Status: Chronic (4) Schizoaffective disorder Code(s): F25.9 - SCHIZOAFFECTIVE DISORDER, UNSPECIFIED Status: Chronic Qualifiers: Schizoaffective disorder type: unspecified - Plan keep him npo, ng suction (has finally agreed to have ng tube put in) iv fluids was on depot antipsychotic q monthly shot with cogentin bid (has not taken it fo r 2 months now) hemostable no bm from yesterday poor historian, needs repeated prompts to get any answer oob to chair and ambulate in room as tolerated q4h
--- NOTE | 2019-11-28 19:25 | CON ---
DATE OF CONSULTATION: 11/27/2019 HISTORY OF PRESENT ILLNESS: Mr. Crawford is a 69-year-old man, an inmate of a local correctional facility, who was admitted on 11/26/2019 due to worsening altered mental status as well as inability to maintain oral intake. The patient has a history of schizophrenia, and is a poor historian, so most of the history is obtained from chart review. We attempted to complete the consultation yesterday, the patient was uninterested and asked us to return later. This morning, I am seeing the patient in the presence of his nurse. He had had two episodes of large volume nonbilious emesis. He finally agreed to have a nasogastric tube placed, which has returned almost 3 L of tita colored nonbilious effluent. Patient reports no significant abdominal pain at this time. Prior to placement of nasogastric tube, the abdomen was distended but is markedly less distended at this time and soft. Patient has had no fevers or chills overnight. He has been on bowel rest on this admission. PAST MEDICAL HISTORY: Significant for schizophrenia. SURGICAL HISTORY: I am unsure of his past surgical history, however, he has a long midline incision on his abdomen. He is unable to recall why he had the surgery. SOCIAL HISTORY: He has a previous history of severe ethanol and crack cocaine abuse. He also used to smoke prior to incarceration. He has been intermittently homeless. FAMILY HISTORY: Unknown. PREHOSPITALIZATION MEDICATION: Unknown. ALLERGIES: PATIENT APPARENTLY HAS NO KNOWN DRUG ALLERGIES. REVIEW OF SYSTEMS: Could not be obtained at this time due to patient's altered mental status. PHYSICAL EXAMINATION: VITAL SIGNS: Include blood pressure 134/76, pulse 82, respiratory rate is 18, temperature 98.5 degrees Fahrenheit, and oxygen saturation 99% on room air. HEENT: Pupils are equal, round, and reactive to light bilaterally. HEART: Reveals regular rate and rhythm. No murmurs or gallops auscultated. LUNGS: Clear to auscultation bilaterally. Breathing regular and nonlabored. ABDOMEN: Soft, previously distended prior to nasogastric tube placement. Currently, abdomen is not distended and is soft on palpation. He has no peritoneal signs on examination, however, bowel sounds are quite hypoactive. Liver and spleen nonpalpable below costal margin. He has anterior abdominal wall defect with non incarcerated herniation. NEUROLOGIC: Reveals no focal deficits present. LABORATORY FINDINGS: Today include a CBC with 4500 white blood cells, hemoglobin and hematocrit 13.4 and 41.8 respectively, and platelet count is 190,000. Differential counts as follows; 38% segmented neutrophils, 38 bands, 12 lymphocytes, and 12 monocytes. Metabolic profile; sodium 129, potassium 3.9, chloride is 92, bicarb is 26, BUN is 23, creatinine is 0.79, glucose 122, magnesium 1.7, and phosphorus 3.0. C-reactive protein from yesterday was elevated at 9.14. Patient is COVID positive. I have reviewed the CT scan of the abdomen and pelvis, which was obtained on 11/27/2019 which reveals multiple distended loops of mostly proximal small bowel. There is gas in the colon and rectum. There is minimum free-fluid and no pneumoperitoneum present. IMPRESSION: 1. Acute partial small-bowel obstruction, likely secondary to adhesions. 2. Acute hyponatremia. 3. Acute hypomagnesemia. 4. Acute hypokalemia. RECOMMENDATIONS: 1. Continue with bowel rest, nasogastric tube decompression, and IV hydration. 2. We will continue with serial physical examination. 3. There is no acute surgical indication for this patient at this time. 4. We will reevaluate the patient in the morning and give consideration to a small-bowel follow-through. 5. Surgical intervention would only be entertained for intractability or failure to resolve this problem with conservative management. Thank you again, Dr. Youssef, for allowing me the opportunity to participate in the care of this patient. Job ID: [id number]
[2019-11-28] MEDS: Ziprasidone 20 MG VIAL IM SCH (20:51)
[2019-11-29 06:27] LABS: #Lymphocytes 0.5 thou/uL (1.20-3.40); #Monocytes 0.6 thou/uL (0.11-0.59); #Neutrophils 4.6 thou/uL (1.40-6.50); %Eosinophils 0.3 % (0.0-10.0); %Monocytes 9.9 % (0.0-10.0); %Neutrophils 80.8 % (42.0-75.0); Hemoglobin 14.8 g/dL (14.0-18.0); Mean Corpuscular HGB CONC 33.2 g/dL (32.0-36.0); Mean Corpuscular Hemoglobin 31.3 pg (27.0-31.0); Mean Corpuscular Volume 94.2 fL (78.0-98.0); Mean Platelet Volume 8.1 fL (7.4-10.4); Platelet Count 205 thou/uL (130-400); RBC Distribution Width 11.4 % (11.5-14.5); Red Blood Cell (RBC) Count 4.74 mill/uL (4.70-6.10); White Blood Cell (WBC) Count 5.7 thou/uL (4.8-10.8)
[2019-11-29 07:39] LABS: Anion Gap 17 mmol/L (10-20); BUN (Urea Nitrogen) 34 mg/dL (8.4-25.7); Calc. Creatinine Clearance 64 mL/min (70-130); Calcium 9.9 mg/dL (7.8-10.44); Carbon Dioxide 32 mmol/L (23-31); Chloride 88 mmol/L (98-107); Estimated GFR-MDRD 89; Glucose 90 mg/dL (80-115); Phosphorus 4.4 mg/dL (2.3-4.7); Potassium 3.7 mmol/L (3.5-5.1); Sodium 133 mmol/L (136-145)
[2019-11-29] MEDS: Benztropine 1 MG TAB PO SCH (08:02)
[2019-11-29] MEDS ORDERED: Famotidine/PF 20 mg/2ml Vial SLOW IVP SCH (09:00)
[2019-11-29] MEDS: Enoxaparin Sodium 40 MG/0.4 ML SYRINGE SC SCH (09:13)
[2019-11-29] MEDS: Lactated Ringer's 1,000 ML IV SCH ×2 (09:14→20:23)
[2019-11-29] MEDS ORDERED: Potassium Chloride 40 MEQ in Sodium Chloride 0.9% 250 ML 250 ML IVPB SCH (09:30)
[2019-11-29] MEDS ORDERED: MD-Gastroview 120 ML BOT ONE (09:43)
--- NOTE | 2019-11-29 11:24 | PDOC.HOSPP ---
- Subjective Encounter Date: 11/29/19 Encounter Time: : Subjective: awake, no nausea or abd pain not in distress - Objective Vital Signs & Weight: Vital Signs (12 hours) Temp Pulse Resp BP Pulse Ox 11/29/19 10:57 98 F 82 18 103/66 98 Weight Admit Weight 143 lb Weight 143 lb I&O: 11/28/19 11/29/19 11/30/19 06:59 06:59 06:59 Intake Total 2220 2100 Output Total 300 7500 Balance 1920 -5400 Result Diagrams: 11/29/19 05:55 11/29/19 07:03 Hospitalist ROS - Medication Medications: Active Medications Generic Name Dose Route Start Last Admin Trade Name Freq PRN Reason Stop Dose Admin Benztropine Mesylate 1 mg 11/29/19 09:00 11/29/19 08:02 Benztropine 1 Mg Tab PO Not Given DAILY OLGA Enoxaparin Sodium 40 mg 11/27/19 09:00 11/29/19 09:13 Enoxaparin Sodium 40 Mg/0.4 Ml Syringe SC 40 mg 09 OLGA Administration Famotidine 20 mg 11/29/19 09:00 11/29/19 09:14 Famotidine/Pf 20 Mg/2ml Vial SLOW IVP 20 mg BID OLGA Administration Lactated Ringer's 1,000 mls @ 100 mls/hr 11/27/19 20:29 11/29/19 09:14 Lactated Ringer's IV 1,000 mls .Q10H OLGA Administration Potassium Chloride 40 meq/ 270 mls @ 67.5 mls/hr 11/29/19 09:30 11/29/19 10:47 Sodium Chloride IVPB 11/29/19 12:00 270 mls NOW OLGA Administration Ondansetron HCl 4 mg 11/26/19 15:27 11/28/19 05:31 Ondansetron Pf 4 Mg/2 Ml Vial IVP 4 mg Q6H PRN Administration Nausea/Vomiting Ziprasidone 10 mg 11/28/19 21:00 11/28/19 20:51 Ziprasidone 20 Mg Vial IM 10 mg HS OLGA Administration - Exam General Appearance: awake alert Eye: PERRL, anicteric sclera ENT: no oropharyngeal lesions, dry oral mucosa Neck: supple, no JVD Heart: RRR, no murmur Respiratory: no wheezes, no rales Gastrointestinal: soft, non-tender, normal bowel sounds, no guarding, no rigidity Extremities: no cyanosis, no edema Neurological: cranial nerve grossly intact, no focal deficits Hosp A/P (1) SBO (small bowel obstruction) Code(s): K56.609 - UNSP INTESTNL OBST, UNSP TO PARTIAL VERSUS COMPLETE OBST Status: Acute (2) Acute metabolic encephalopathy Code(s): G93.41 - METABOLIC ENCEPHALOPATHY Status: Acute (3) FTT (failure to thrive) in adult Status: Chronic (4) Schizoaffective disorder Code(s): F25.9 - SCHIZOAFFECTIVE DISORDER, UNSPECIFIED Status: Chronic Qualifiers: Schizoaffective disorder type: unspecified - Plan npo, ng suction, for small bowel follow through iv fluids was on depot antipsychotic q monthly shot with cogentin bid (has not taken it for 2 months now) currently on geodon im qhs and cogentin hemostable not sure if he had a bm poor historian, needs repeated prompts to get any answer oob to chair and ambulate in room as tolerated q4h, has ambulated nearly 400ft
--- NOTE | 2019-11-29 11:51 | PQF ---
CLINICAL DOCUMENTATION CLARIFICATION FORM: Dear Dr. ALVARO BOWER Date: 11-29-19 Please exercise your independent, professional judgment in responding to the clarification form. Clinical indicators are provided on the bottom of this form for your review. Please check appropriate box(es): [ ] Protein Calorie Malnutrition: [ ] Mild [ ] Moderate [ x ] Severe [ ] Other Malnutrition (please specify) [ ] Other diagnosis [ ] Unable to determine In addition, please specify: Present on Admission (POA): [ x ] Yes [ ] No [ ] Unable to determine For continuity of documentation, please document condition throughout progress notes and discharge summary. Thank You. To be completed by CDI/Coding staff for physician review: CLINICAL INDICATORS - SIGNS / SYMPTOMS / LABS / RESULTS AND LOCATION IN MR: H&P 11-26-19: CONFUSION AND LETHARGY, POOR ORAL INTAKE, CACHEXIA, COVID ANTIBODY +, ACUTE HYPONATREMIA, MODERATE DEHYDRATION, FROM [facility], ON MEGACE, FTT, SCHIZO, ACUTE HYPOMAGNESEMIA, ACUTE HYPOKALEMIA BMI: 11-26-19: 17.6 ER DX 11-26-19: AMS, HYPERKALEMIA, HYPONATREMIA, MALNOURISHED REJECTOR CONSULT 11-27-19: The patient reported a UBW of 180#, which he said he weighed 2 days ago. The patient weighed 153# in November of 2016. The guard said the patient had vomiting last night. Observed severe temporalis muscle and buccal fat pad wasting; pt was covered with a blanket. severe temporalis muscle and buccal fat pad wasting, estimated intake <50% of needs x 6 weeks suggestive of severe malnutrition in the context of chronic illness RISK FACTORS / RESULTS AND LOCATION IN MR: REJECTOR CONSULT 11-27-19: The guard said the patient had vomiting last night. Estimated intake <50% of needs x 6 weeks, HE HAS NO TEETH PN DR. BOWER 11-27-19: SBO, ACUTE METABOLIC ENCEPHALOPATHY, FTT, SCHIZOAFFECTIVE DISORDER TREATMENT / RESULTS AND LOCATION IN MR: REJECTOR CONSULT 11-27-19: 1. Continue regular diet with chopped textures. 2. Recommend Ensure Enlive TID to promote adequate intake. 3. Continue appetite stimulant. 4. Provide anti-emetic PRN. H&P 11-26-19: , ON MEGACE Moderate Malnutrition (in acute illness) Energy Intake: <75% of estimated energy requirement for > 7 days Weight Loss: 1-2%/1 week; 5%/ 1 month; 7.5%/3 months Other: mild body fat loss; mild muscle mass loss; mild fluid accumulation; Severe Malnutrition (in acute illness) Energy Intake: = 50% of estimated energy requirement for = 5 days Weight Loss: >2%/1 week; >5%/1 month; >7.5%/3 months Other: moderate body fat loss; moderate muscle mass loss; moderate- severe fluid accumulation; measurably reduced sound system installer strength Moderate Malnutrition (in chronic illness) Energy Intake: <75% of estimated energy requirement for =1 month Weight Loss: 5%/1 month; 7.5%/3 months; 10%/6 months; 20%/1 year Other: mild body fat loss; mild muscle mass loss; mild fluid accumulation Severe Malnutrition (in chronic illness) Energy Intake: =75% of estimated energy requirement for =1 month Weight Loss: >5%/1 month; >7.5%/3 months; >10%/6 months; >20%/1 year Other: severe body fat loss; severe muscle mass loss; severe fluid accumulation; measurably reduced sound system installer strength CDS Signature: Britney Reagan Phone #: [phone] Date: 11-29-19 This is a permanent part of the Medical Record [facility]
--- NOTE | 2019-11-29 12:10 | PQF ---
CLINICAL DOCUMENTATION CLARIFICATION FORM: Dear Dr. ALVARO BOWER Date / Time: 11-29-19 Please exercise your independent, professional judgment in responding to the clarification form. Clinical indicators are provided on the bottom of this form for your review. Please check appropriate box(es): [ ] Sepsis due to: [ ] Severe sepsis with associated acute organ dysfunction: [ ] Encephalopathy (metabolic) (septic) [ ] Additional/Other: please specify: [ ] Localized infection without sepsis [ x ] SIRS due to non-infectious process (please specify etiology) __small bowel obstruction [ ] with organ dysfunction [ ] without organ dysfunction [ ] Other diagnosis [ ] Unable to determine In addition, please specify: Present on Admission (POA): [ x ] Yes [ ] No [ ] Unable to determine For continuity of documentation, please document condition throughout progress notes and discharge summary. Thank You. To be completed by CDI/Coding staff for physician review: CLINICAL INDICATORS - SIGNS / SYMPTOMS / LABS / RESULTS AND LOCATION IN MR: H&P 11-26-19: CONFUSION AND LETHARGY, POOR ORAL INTAKE, SBO, ACUTE METABOLIC ENCEPHALOPATHY, CACHEXIA, COVID ANTIBODY POSITIVE, ACUTE HYPONATREMIA, MODERATE DEHYDRATION, FROM SKILLED NURSING, ON MEGACE, FTT, SCHIZO, ACUTE HYPOMAGNESEMIA, ACUTE HYPOKALEMIA ER DX: AMS, HYPERKALEMIA, HYPONATREMIA, MALNOURISHED PN DR. BOWER 11-27-19: SBO, ACUTE METABOLIC ENCEPHALOPATHY, FTT WBC: 11-26-19: 3.9, 11-27-19: 1.5, 11-28-19: 4.5 NEUTROPHILS 11-26-19: 76.4%, 11-29-19: 80.8% BANDS: 11-28-19: 38% LACTIC ACID: 11-26-19: 2.3 RISK FACTORS / RESULTS AND LOCATION IN MR: H&P 11-26-19: CONFUSION AND LETHARGY, POOR ORAL INTAKE, SBO, ACUTE METABOLIC ENCEPHALOPATHY, CACHEXIA, COVID ANTIBODY POSITIVE, ACUTE HYPONATREMIA, MODERATE DEHYDRATION, FROM SKILLED NURSING, ON MEGACE, FTT, SCHIZO, ACUTE HYPOMAGNESIUMIA, ACUTE HYPOKALEMIA PN DR. BOWER 11-27-19: SBO, ACUTE METABOLIC ENCEPHALOPATHY, FTT TREATMENTS / RESULTS AND LOCATION IN MR: ER NOTES 11-26-19: NS IVF MAR: 11-27-19: LR IVF , POTASSIUM CHLORIDE IVF INFECTIOUS DISEASE CONSULT 11-27-19 CDS Signature: Britney Reagan Phone #: [phone] Date: 11-29-19 This is a permanent part of the Medical Record [facility]
--- NOTE | 2019-11-29 14:04 | RAD ---
Exam: Gastrografin small bowel HISTORY: Evaluate for small bowel obstruction FINDINGS: Portable supine manager lsw radiograph demonstrates a nasogastric tube in the epigastric region. There is fecal material in the sigmoid colon and rectum. Gastrografin opacifies multiple distended loops of small bowel. Gastrografin opacifies the colon on t he one hour image. IMPRESSION: No evidence of high-grade bowel obstruction. Contrast opacifies the colon on the one-hour image.
--- NOTE | 2019-11-29 15:50 | PRG ---
DATE OF SERVICE: 11/29/2019 SUBJECTIVE: Mr. Crawford is a 69-year-old man, history of schizophrenia, whom I saw in consultation yesterday with acute small bowel obstruction. Nasogastric tube was successfully placed and overnight returned over 6000 mL of succus entericus. The patient has not had any bowel movement since admission. We are not sure as to if the patient is passing any flatus. OBJECTIVE: VITAL SIGNS: This morning include blood pressure 103/66, pulse 82, respiratory rate is 18, temperature 98 degrees Fahrenheit, and oxygen saturation 98% on room air. HEART: Reveals regular rate and rhythm. LUNGS: Clear to auscultation bilaterally. Breathing, regular and unlabored. ABDOMEN: Soft and nondistended. There is no tenderness to palpation. LABORATORY FINDINGS: Today includes CBC with 5700 white blood cells, hemoglobin and hematocrit 14.8 and 44.7 respectively, and platelet count is 205,000. Metabolic profile; sodium 133, potassium 3.7, chloride is 88, bicarb is 32, BUN is 34, creatinine is 1.01, glucose is 90, magnesium 2.0, and phosphorus 4.4. I have personally reviewed the small bowel follow-through, which was obtained today and this shows contrast in the colon within 1 hour of administration. IMPRESSION: 1. Resolved acute small bowel obstruction. 2. COVID-19 infection. PLAN: No acute surgical indication for this patient at this time. I have discussed with the Primary Care Service. The patient will be started on a proton-pump inhibitor due to high gastric output, which is likely acidic. Once the gastric output decreases, nasogastric tube will be discontinued and the patient could be started on oral intake as tolerated. Job ID: [id number]
[2019-11-29] MEDS: Ziprasidone 20 MG VIAL IM SCH (20:22)
[2019-11-29] MEDS: Pantoprazole 40 MG VIAL IVP SCH (20:22)
[2019-11-30] MEDS: Enoxaparin Sodium 40 MG/0.4 ML SYRINGE SC SCH (08:00)
[2019-11-30] MEDS: Pantoprazole 40 MG VIAL IVP SCH ×2 (08:01→22:07)
[2019-11-30] MEDS: Lactated Ringer's 1,000 ML IV SCH ×2 (08:05→18:38)
[2019-11-30] MEDS: Benztropine 1 MG TAB PO SCH ×2 (08:18→22:22)
--- NOTE | 2019-11-30 12:06 | PDOC.HOSPP ---
- Subjective Encounter Date: 11/30/19 Encounter Time: 09:00 Subjective: more oriented this am, no nausea or abd pain has a bit of hallucinations this am (wants to go back to study at [employer] after he g ets released from hosp) - Objective Vital Signs & Weight: Vital Signs (12 hours) Temp Pulse Resp BP Pulse Ox 11/30/19 08:00 98.1 F 90 18 103/70 11/30/19 01:00 97.9 F 91 18 101/65 100 Weight Admit Weight 143 lb Weight 143 lb I&O: 11/29/19 11/30/19 12/01/19 06:59 06:59 06:59 Intake Total 2100 1200 Output Total 7500 2000 Balance -5400 -800 Result Diagrams: 11/29/19 05:55 11/29/19 07:03 Hospitalist ROS - Medication Medications: Active Medications Generic Name Dose Route Start Last Admin Trade Name Freq PRN Reason Stop Dose Admin Benztropine Mesylate 1 mg 11/29/19 09:00 11/30/19 08:18 Benztropine 1 Mg Tab PO Not Given DAILY OLGA Enoxaparin Sodium 40 mg 11/27/19 09:00 11/30/19 08:00 Enoxaparin Sodium 40 Mg/0.4 Ml Syringe SC 40 mg 0900 OLGA Administration Lactated Ringer's 1,000 mls @ 100 mls/hr 11/27/19 20:29 11/30/19 08:05 Lactated Ringer's IV 1,000 mls .Q10H OLGA Administration Ondansetron HCl 4 mg 11/26/19 15:27 11/28/19 05:31 Ondansetron Pf 4 Mg/2 Ml Vial IVP 4 mg Q6H PRN Administration Nausea/Vomiting Pantoprazole Sodium 40 mg 11/29/19 21:00 11/30/19 08:01 Pantoprazole 40 Mg Vial IVP 40 mg Q12HR OLGA Administration - Exam General Appearance: awake alert Eye: PERRL, anicteric sclera ENT: no oropharyngeal lesions, dry oral mucosa Neck: supple, no JVD Heart: RRR, no murmur Respiratory: no wheezes, no rales Gastrointestinal: soft, non-tender, non-distended, normal bowel sounds, no guarding, no rigidity Extremities: no cyanosis, no edema Neurological: cranial nerve grossly intact, no focal deficits Hosp A/P (1) SBO (small bowel obstruction) Code(s): K56.609 - UNSP INTESTNL OBST, UNSP TO PARTIAL VERSUS COMPLETE OBST Status: Acute (2) Acute metabolic encephalopathy Code(s): G93.41 - METABOLIC ENCEPHALOPATHY Status: Acute (3) FTT (failure to thrive) in adult Status: Chronic (4) Schizoaffective disorder Code(s): F25.9 - SCHIZOAFFECTIVE DISORDER, UNSPECIFIED Status: Chronic Qualifiers: Schizoaffective disorder type: unspecified - Plan small bowel follow through showed resolved sbo iv fluids was on depot antipsychotic q monthly shot with cogentin bid (has not taken it for 2 months now) currently on geodon po qhs and cogentin hemostable had bm last evening and was normal (but did contain paper per staff) poor historian oob to chair and ambulate in room as tolerated q4h, has ambulated nearly 400ft is asymptomatic with +ve Covid 19 virus will need placement Came from [facility] and he has been released on [facility] now. spoke to sister , he lives with another sister ([phone]) who is covid -ve
[2019-11-30 12:50] LABS: Band 15 % (5-11); Eosinophils 2 % (0-10); Hemoglobin 15.2 g/dL (14.0-18.0); Lymphocytes 10 % (21-51); MDiff Complete? YES; Mean Corpuscular HGB CONC 32.3 g/dL (32.0-36.0); Mean Corpuscular Hemoglobin 31.3 pg (27.0-31.0); Mean Corpuscular Volume 96.9 fL (78.0-98.0); Mean Platelet Volume 7.3 fL (7.4-10.4); Monocytes 16 % (0-10); Neutrophil 55 % (42-75); Platelet Count 230 thou/uL (130-400); Platelet Morphology Comment Appears Adequate; Polychromasia SLIGHT = 2-3 cells (100X) (0-2/hpf); RBC Distribution Width 11.4 % (11.5-14.5); Reactive Lymphocytes 2 % (0-10); Red Blood Cell (RBC) Count 4.87 mill/uL (4.70-6.10); Target Cells SLIGHT = 2-5 cells (100X) (0-1/hpf); White Blood Cell (WBC) Count 5.8 thou/uL (4.8-10.8)
[2019-11-30 13:00] LABS: Anion Gap 19 mmol/L (10-20); BUN (Urea Nitrogen) 30 mg/dL (8.4-25.7); Calc. Creatinine Clearance 75 mL/min (70-130); Calcium 9.9 mg/dL (7.8-10.44); Carbon Dioxide 25 mmol/L (23-31); Chloride 103 mmol/L (98-107); Estimated GFR-MDRD Greater than 90; Glucose 90 mg/dL (80-115); Potassium 5.1 mmol/L (3.5-5.1); Sodium 142 mmol/L (136-145)
--- NOTE | 2019-11-30 16:24 | PRG ---
DATE OF SERVICE: 11/30/2019 SUBJECTIVE: Mr. Crawford is little more alert, still a little confused. No respiratory symptoms or abdominal pain. OBJECTIVE: VITAL SIGNS: His T-max 99.9, on the has been afebrile since and other vital signs are normal. Room air O2 saturations are 100. GENERAL: He is alert. HEENT: Oral cavity is somewhat dry. LUNGS: Symmetric, clear breath sounds. HEART: S1 and S2. Regular rate. ABDOMEN: Softer, less tender. No bladder distention. DISCUSSION: The patient has been off his antipsychotic medications for a while and is now currently on Geodon and Cogentin. He is probably going to have to go back to his depot antipsychotic preparation since compliance with those is not guaranteed. The patient had a small-bowel follow-through on November 28 and there was no evidence of high-grade obstruction. So the next step is to assess the success of his voiding trial. Looks like it was successful. Probably, we will need to evaluate for future retention as needed. His COVID is mild. It is hard to precisely estimate the duration of illness at this point but one way for us to do this is to check his SARS-Cov-2 antibody and if it is positive, then would very likely at least 14 days of illness depending on the titer. Job ID: [id number]
[2019-11-30 19:57] LABS: SARS-CoV-2 IgG Ab Reactive (NonReactive); SARS-CoV-2 IgG Index 2.94 S/CO (< 1.40)
[2019-11-30] MEDS: Ziprasidone 20 MG CAP PO SCH (20:57)
[2019-12-01] MEDS: Lactated Ringer's 1,000 ML IV SCH ×3 (05:05→20:42)
[2019-12-01 05:56] LABS: Anion Gap 8 mmol/L (10-20); BUN (Urea Nitrogen) 23 mg/dL (8.4-25.7); Calc. Creatinine Clearance 86 mL/min (70-130); Calcium 9.2 mg/dL (7.8-10.44); Carbon Dioxide 36 mmol/L (23-31); Chloride 98 mmol/L (98-107); Estimated GFR-MDRD Greater than 90; Glucose 96 mg/dL (80-115); Potassium 4.3 mmol/L (3.5-5.1); Sodium 138 mmol/L (136-145)
[2019-12-01] MEDS: Pantoprazole 40 MG VIAL IVP SCH ×2 (09:23→20:20)
[2019-12-01] MEDS: Benztropine 1 MG TAB PO SCH (09:26)
[2019-12-01] MEDS: Enoxaparin Sodium 40 MG/0.4 ML SYRINGE SC SCH (09:26)
--- NOTE | 2019-12-01 11:25 | PDOC.HOSPP ---
- Subjective Encounter Date: 12/01/19 Encounter Time: 11:24 Subjective: Mr. Crawford was seen today in follow-up of pneumonia and partial bowel obstruction. He does not have any complaints. He is confused. - Objective Vital Signs & Weight: Vital Signs (12 hours) Temp Pulse Resp BP Pulse Ox 12/01/19 10:16 98.5 F 82 16 135/80 95 Weight Admit Weight 143 lb Weight 143 lb I&O: 11/30/19 12/01/19 12/02/19 06:59 06:59 06:59 Intake Total 1200 900 Output Total 2000 Balance -800 900 Result Diagrams: 11/30/19 12:20 12/01/19 05:26 Hospitalist ROS - Medication Medications: Active Medications Generic Name Dose Route Start Last Admin Trade Name Freq PRN Reason Stop Dose Admin Benztropine Mesylate 1 mg 11/29/19 09:00 12/01/19 09:26 Benztropine 1 Mg Tab PO 1 mg DAILY OLGA Administration Enoxaparin Sodium 40 mg 11/27/19 09:00 12/01/19 09:26 Enoxaparin Sodium 40 Mg/0.4 Ml Syringe SC 40 mg 09 OLGA Administration Lactated Ringer's 1,000 mls @ 100 mls/hr 11/27/19 20:29 12/01/19 05:05 Lactated Ringer's IV 1,000 mls .Q10H OLGA Administration Ondansetron HCl 4 mg 11/26/19 15:27 11/28/19 05:31 Ondansetron Pf 4 Mg/2 Ml Vial IVP 4 mg Q6H PRN Administration Nausea/Vomiting Pantoprazole Sodium 40 mg 11/29/19 21:00 12/01/19 09:23 Pantoprazole 40 Mg Vial IVP 40 mg Q12HR OLGA Administration Ziprasidone 40 mg 11/30/19 21:00 11/30/19 20:57 Ziprasidone 20 Mg Cap PO 40 mg HS OLGA Administration - Exam Eye: PERRL, anicteric sclera Heart: RRR, no murmur, no gallops, no rubs, normal peripheral pulses Respiratory: CTAB, no wheezes, no rales, no ronchi, normal chest expansion Gastrointestinal: soft, non-tender, non-distended, normal bowel sounds, no palpable masses, no hepatomegaly, no splenomegaly Extremities: no cyanosis, no clubbing, no edema Hosp A/P (1) COVID-19 virus infection Code(s): U07.1 - COVID-19 Status: Acute (2) SBO (small bowel obstruction) Code(s): K56.609 - UNSP INTESTNL OBST, UNSP TO PARTIAL VERSUS COMPLETE OBST Status: Acute (3) FTT (failure to thrive) in adult Status: Chronic (4) Alcohol abuse Code(s): F10.10 - ALCOHOL ABUSE, UNCOMPLICATED Status: Acute (5) Schizoaffective disorder Code(s): F25.9 - SCHIZOAFFECTIVE DISORDER, UNSPECIFIED Status: Chronic Qualifiers: Schizoaffective disorder type: unspecified - Plan * SBO- resolved * Pneumonia- he has completed a full course of antibiotics * COVID infection- asymptomatic, and can not determine the length of time of infection * Stable for transfer to [facility]
[2019-12-01] MEDS: Ziprasidone 20 MG CAP PO SCH (20:20)
[2019-12-02] MEDS: Lactated Ringer's 1,000 ML IV SCH ×2 (04:42→15:14)
[2019-12-02] MEDS: Benztropine 1 MG TAB PO SCH (08:48)
[2019-12-02] MEDS: Enoxaparin Sodium 40 MG/0.4 ML SYRINGE SC SCH (08:48)
[2019-12-02] MEDS: Pantoprazole 40 MG VIAL IVP SCH ×2 (08:48→20:03)
--- NOTE | 2019-12-02 15:20 | PDOC.HOSPP ---
- Subjective Encounter Date: 12/02/19 Encounter Time: 15:19 Subjective: Mr. Crawford was seen today in follow-up of partial bowel obstruction and COVID infection. He does not have any complaints. - Objective Vital Signs & Weight: Vital Signs (12 hours) Temp Pulse Resp BP Pulse Ox 12/02/19 08:00 97.5 F L 73 14 120/74 99 Weight Admit Weight 143 lb Weight 143 lb I&O: 12/01/19 12/02/19 12/03/19 06:59 06:59 06:59 Intake Total 900 1870 Output Total 525 Balance 900 1345 Result Diagrams: 11/30/19 12:20 12/01/19 05:26 Hospitalist ROS - Medication Medications: Active Medications Generic Name Dose Route Start Last Admin Trade Name Freq PRN Reason Stop Dose Admin Benztropine Mesylate 1 mg 11/29/19 09:00 12/02/19 08:48 Benztropine 1 Mg Tab PO 1 mg DAILY OLGA Administration Enoxaparin Sodium 40 mg 11/27/19 09:00 12/02/19 08:48 Enoxaparin Sodium 40 Mg/0.4 Ml Syringe SC 40 mg 09 OLGA Administration Lactated Ringer's 1,000 mls @ 100 mls/hr 11/27/19 20:29 12/02/19 15:14 Lactated Ringer's IV 1,000 mls .Q10H OLGA Administration Ondansetron HCl 4 mg 11/26/19 15:27 11/28/19 05:31 Ondansetron Pf 4 Mg/2 Ml Vial IVP 4 mg Q6H PRN Administration Nausea/Vomiting Pantoprazole Sodium 40 mg 11/29/19 21:00 12/02/19 08:48 Pantoprazole 40 Mg Vial IVP 40 mg Q12HR OLGA Administration Ziprasidone 40 mg 11/30/19 21:00 12/01/19 20:20 Ziprasidone 20 Mg Cap PO 40 mg HS OLGA Administration - Exam Eye: PERRL, anicteric sclera Heart: RRR, no murmur, no gallops, no rubs, normal peripheral pulses Respiratory: CTAB, no wheezes, no rales, no ronchi, normal chest expansion, no tachypnea, normal percussion Gastrointestinal: soft (+ large ventral hernia, which is easily reducible), non- tender, non-distended, normal bowel sounds Hosp A/P (1) COVID-19 virus infection Code(s): U07.1 - COVID-19 Status: Acute (2) SBO (small bowel obstruction) Code(s): K56.609 - UNSP INTESTNL OBST, UNSP TO PARTIAL VERSUS COMPLETE OBST Status: Acute (3) FTT (failure to thrive) in adult Status: Chronic (4) Alcohol abuse Code(s): F10.10 - ALCOHOL ABUSE, UNCOMPLICATED Status: Acute (5) Schizoaffective disorder Code(s): F25.9 - SCHIZOAFFECTIVE DISORDER, UNSPECIFIED Status: Chronic Qualifiers: Schizoaffective disorder type: unspecified - Plan * SBO- resolved * COVID infection- asymptomatic, and can not determine the length of time of infection * Awaiting transfer to [facility] [place]
[2019-12-02] MEDS: Ziprasidone 20 MG CAP PO SCH (20:04)
[2019-12-03] MEDS: Lactated Ringer's 1,000 ML IV SCH ×2 (01:54→08:26)
[2019-12-03] MEDS: Pantoprazole 40 MG VIAL IVP SCH (08:20)
[2019-12-03] MEDS: Benztropine 1 MG TAB PO SCH (08:20)
[2019-12-03] MEDS: Enoxaparin Sodium 40 MG/0.4 ML SYRINGE SC SCH (08:20)
[2019-12-03 17:46] VITALS: BP 169/91; TEMP 97.6
--- NOTE | 2019-12-04 02:06 | DIS ---
DATE OF ADMISSION: 11/27/2019 DATE OF DISCHARGE: 12/03/2019 Patient does not have a primary care physician. DISCHARGE DISPOSITION: [facility]. DISCHARGE DIAGNOSES: 1. Partial bowel obstruction, resolved. 2. Urinary obstruction, resolved, likely secondary to partial bowel obstruction, resolved. 3. Coronavirus disease infection, relatively asymptomatic. 4. Encephalopathy. 5. Schizophrenia. DISCHARGE MEDICATIONS: 1. Pantoprazole 40 mg p.o. b.i.d. 2. Geodon 40 mg q.h.s. 3. Cogentin 1 mg p.o. daily. 4. Invega 234 mg IM every month. 5. Cogentin 2 mg p.o. b.i.d. IMAGING DONE: During the hospital stay; the patient had a CT scan of the abdomen and pelvis. The predominant findings include a moderate grade partial bowel obstruction with a transition zone located over the left abdomen. There is moderate bladder distention and findings suspicious for possible aspiration pneumonia. The patient had a CT scan of the brain, which was negative for any acute intracranial abnormalities. The patient had a small-bowel follow-through or small-bowel x-ray showing no evidence of any high-grade obstruction. CODE STATUS: Full code. ALLERGIES: NO KNOWN DRUG ALLERGIES. HOSPITAL COURSE: Mr. Crawford is a 69-year-old gentleman, who was sent over from the local halfway due to concerns for failure to thrive, poor oral intake, and lethargy. The patient has a history of schizophrenia, and he is very unreliable historian. It is also unclear why he was incarcerated at the halfway. It appears from review of the records that he was there mostly for care home care given that they could not find a place for him to reside, and no family members were willing to take him. Nevertheless, he was sent over to our facility where there was initial concern for possible small bowel obstruction. He was placed on IV fluids and bowel rest. A repeat x-ray with small-bowel follow-through showed that he had resolution of the partial obstruction, and did not require any type of surgical intervention. There is also concern for possible urinary obstruction, however, after resolution of the bowel symptoms, the patient was able to void without any difficulty and had a voiding trial. He was also found to have COVID-19 infection, which seemed to be relatively asymptomatic. He had no symptoms of cough or congestion, no fever, and he likely acquired this while being incarcerated in halfway. ID was consulted to cd mixer helper in the management of the COVID infection, but since it was unclear when the patient's actual exposure history was or when in fact he was infected and the fact that he was relatively asymptomatic, there was no need for any further treatment, nor there is need for any type of further testing such as antibody test, it is likely that he could have had this infection for at least 2 weeks or more. The patient was not safe to be discharged home on his own as he has some baseline encephalopathy likely as a result of his schizophrenia. It is likely that he has not been compliant with his medications. He was started on oral Geodon while he was here, and at some point, he will need psychiatric evaluation to get him restarted on his Depo injections for his maintenance of treatment for schizophrenia. Once arrangements were made for him to be transferred to [facility], he was discharged. Job ID: [id number]
== END 2019-12-03 17:53 | disposition home or self-care (01) | DRG 388 ==
LOC: ERS 12:20 → EEVIPCON 12:20 → T4-A 14:20 → OBSVTOIN 11-27 12:40
PROVIDERS: ADMIT Internal Medicine; ATTEND Internal Medicine
DX: K56.51 Intestinal adhesions [bands], with partial obstruction (principal); U07.1 COVID-19; G93.41 Metabolic encephalopathy; E43 Unspecified severe protein-calorie malnutrition; J18.9 Pneumonia, unspecified organism; E87.1 Hypo-osmolality and hyponatremia; Z68.1 Body mass index [BMI] 19.9 or less, adult; R64 Cachexia; R65.10 Systemic inflammatory response syndrome (SIRS) of non-infectious origin without acute organ dysfunction; N13.9 Obstructive and reflux uropathy, unspecified; F20.9 Schizophrenia, unspecified; R62.7 Adult failure to thrive; E86.0 Dehydration; G40.909 Epilepsy, unspecified, not intractable, without status epilepticus; F17.210 Nicotine dependence, cigarettes, uncomplicated; E87.5 Hyperkalemia; F10.10 Alcohol abuse, uncomplicated; E83.42 Hypomagnesemia; E87.6 Hypokalemia; F14.10 Cocaine abuse, uncomplicated; F12.10 Cannabis abuse, uncomplicated; N40.1 Benign prostatic hyperplasia with lower urinary tract symptoms; R33.9 Retention of urine, unspecified; Z59.0 Homelessness
CPT/HCPCS: 36415; 70450; 71045; 74018; 74022; 74177; 74250; 80048; 80053; 80307; 82140; 82728; 83605; 83735; 84100; 85007; 85025; 85027; 85379; 86140; 86769; 87635; 93005; 93010; 96361; 96365; 96366; 96375; 96376; C9113; G0378; J1650; J2405; J2765; J3411; J3480; J3486; J7042; J7050; Q9963; Q9967; S0028; S0179; U0003

== ENCOUNTER 2020-03-16 07:31 | Emergency (ER) | payer MEDICARE, MEDICAID ==
[2020-03-16 08:24] LABS: #Eosinphils 0.1 thou/uL (0.0-0.7); #Lymphocytes 1.2 thou/uL (1.20-3.40); #Monocytes 0.5 thou/uL (0.11-0.59); #Neutrophils 2.5 thou/uL (1.40-6.50); %Basophils 0.5 % (0.0-1.0); %Eosinophils 1.7 % (0.0-10.0); %Lymphocytes 27.6 % (21.0-51.0); %Monocytes 12.5 % (0.0-10.0); %Neutrophils 57.7 % (42.0-75.0); Hemoglobin 11.5 g/dL (14.0-18.0); Mean Corpuscular HGB CONC 32.8 g/dL (32.0-36.0); Mean Corpuscular Hemoglobin 32.1 pg (27.0-31.0); Mean Corpuscular Volume 97.7 fL (78.0-98.0); Mean Platelet Volume 8.3 fL (7.4-10.4); Platelet Count 131 thou/uL (130-400); RBC Distribution Width 12.2 % (11.5-14.5); Red Blood Cell (RBC) Count 3.58 mill/uL (4.70-6.10); White Blood Cell (WBC) Count 4.3 thou/uL (4.8-10.8)
--- NOTE | 2020-03-16 08:31 | RAD ---
RADIOGRAPH CHEST 1 VIEW: DATE: 03/16/2020 TIME: 8:15 AM HISTORY: 69-year-old male with acute dyspnea COMPARISON: 11/28/2019 FINDINGS: New blunting of the right lateral costophrenic angle consistent with small pleural effusion. New small region of haziness at right medial lung base, nonspecific, but could represent mild atelect asis or early pneumonia. A lateral view would be useful. Otherwise, no consolidation elsewhere. No cardiomegaly or pneumothorax. IMPRESSION: 1) small right pleural effusion. 2) nonspecific small faint region of increased pulmonary attenuation at right lung base.
[2020-03-16 08:46] LABS: ALT (SGPT) 47 U/L (8-55); AST (SGOT) 49 U/L (5-34); Albumin 3.3 g/dL (3.4-4.8); Alkaline Phosphatase 55 U/L (40-110); Anion Gap 10 mmol/L (10-20); BUN (Urea Nitrogen) 13 mg/dL (8.4-25.7); Bilirubin, Total 0.4 mg/dL (0.2-1.2); Calc. Creatinine Clearance 0 mL/min (70-130); Calcium 8.5 mg/dL (7.8-10.44); Carbon Dioxide 28 mmol/L (23-31); Chloride 109 mmol/L (98-107); Globulin 2.6 g/dL (2.4-3.5); Glucose 84 mg/dL (80-115); Potassium 3.9 mmol/L (3.5-5.1); Protein, Total 5.9 g/dL (5.8-8.1); Sodium 143 mmol/L (136-145)
[2020-03-16 08:49] LABS: CKMB 3.1 ng/mL (0-6.6); Troponin I Less than 0.010 ng/mL (< 0.028)
[2020-03-16 16:09] LABS: SARS-CoV-2 MS2 Positive; SARS-CoV-2 N Gene Negative; SARS-CoV-2 S Gene Negative; SARS-CoV-2 by NAA Not Detected (NotDetected); SARS-CoV-2 orf1ab Negative
== END 2020-03-16 12:04 | disposition home or self-care (01) ==
LOC: ERS 07:31
DX: J90 Pleural effusion, not elsewhere classified (principal); G20 Parkinson's disease; Z20.822 Contact with and (suspected) exposure to COVID-19; Z79.899 Other long term (current) drug therapy; F17.210 Nicotine dependence, cigarettes, uncomplicated
CPT/HCPCS: 71045; 80053; 82553; 83880; 84484; 85025; 93005; 94760; U0003; 87635

== ENCOUNTER 2020-04-02 15:48 | Emergency (ER) | payer MEDICARE, MEDICAID ==
[2020-04-02 16:39] LABS: #Basophils 0.1 thou/uL (0.0-0.2); #Eosinphils 0.1 thou/uL (0.0-0.7); #Lymphocytes 1.4 thou/uL (1.20-3.40); #Monocytes 0.6 thou/uL (0.11-0.59); #Neutrophils 4.2 thou/uL (1.40-6.50); %Basophils 1.1 % (0.0-1.0); %Eosinophils 1.1 % (0.0-10.0); %Lymphocytes 21.8 % (21.0-51.0); %Monocytes 9.3 % (0.0-10.0); %Neutrophils 66.7 % (42.0-75.0); Hemoglobin 13.4 g/dL (14.0-18.0); Mean Corpuscular HGB CONC 32.2 g/dL (32.0-36.0); Mean Corpuscular Hemoglobin 31.1 pg (27.0-31.0); Mean Corpuscular Volume 96.5 fL (78.0-98.0); Mean Platelet Volume 7.5 fL (7.4-10.4); Platelet Count 174 thou/uL (130-400); RBC Distribution Width 12.3 % (11.5-14.5); Red Blood Cell (RBC) Count 4.31 mill/uL (4.70-6.10); White Blood Cell (WBC) Count 6.2 thou/uL (4.8-10.8)
[2020-04-02 17:09] LABS: AST (SGOT) 20 U/L (5-34); Anion Gap 14 mmol/L (10-20); Bilirubin, Total 0.3 mg/dL (0.2-1.2); Calcium 8.9 mg/dL (7.8-10.44); Carbon Dioxide 22 mmol/L (23-31); Chloride 105 mmol/L (98-107); Potassium 4.1 mmol/L (3.5-5.1); Sodium 137 mmol/L (136-145)
[2020-04-02 17:33] LABS: ALT (SGPT) 14 U/L (8-55); Albumin 3.5 g/dL (3.4-4.8); Alkaline Phosphatase 56 U/L (40-110); BUN (Urea Nitrogen) 16 mg/dL (8.4-25.7); Calc. Creatinine Clearance 0 mL/min (70-130); Globulin 3.1 g/dL (2.4-3.5); Glucose 129 mg/dL (80-115); Protein, Total 6.6 g/dL (5.8-8.1)
[2020-04-02 17:57] LABS: Bacteria/HPF None Seen HPF (None Seen); Bilirubin Negative (Negative); Blood, Urine Trace (Negative); Clarity Turbid (Clear); Glucose, Urine (Dipstick) 30 mg/dL (Negative); Ketone, Urine Negative (Negative); Leukocyte Negative Leu/uL (Negative); Nitrite Negative (Negative); Protein, Urine (Dipstick) 50 mg/dL (Neg-Trace); RBC/HPF 0-3 HPF (0-3); Specific Gravity, Urine 1.023 (1.002-1.036); Squamous Epithelial 0-3 HPF (0-3); Urobilinogen Normal mg/dL (Less than 2)
[2020-04-02 18:07] LABS: Amphetamine Not Detected (NotDetected); Barbiturates Screen Not Detected (NotDetected); Benzodiazepine Screen Not Detected (NotDetected); Cocaine Metabolite Screen Not Detected (NotDetected); Medtox Control Line Valid? VALID (VALID); Medtox Reader # READER 4; Methadone Not Detected (NotDetected); Methamphetamine Not Detected (NotDetected); Opiate Screen Not Detected (NotDetected); Oxycodone Screen Not Detected (NotDetected); Phencyclidine (PCP) Not Detected (NotDetected); THC/Cannabinoid Screen Detected (NotDetected); Tricyclic Screen Not Detected (NotDetected)
== END 2020-04-02 20:25 | disposition home or self-care (01) ==
LOC: ERS 15:48
DX: R41.82 Altered mental status, unspecified (principal); G20 Parkinson's disease; F12.129 Cannabis abuse with intoxication, unspecified; F17.210 Nicotine dependence, cigarettes, uncomplicated; Z79.899 Other long term (current) drug therapy
CPT/HCPCS: 36415; 51701; 70450; 71045; 80053; 80306; 81003; 81015; 84443; 84484; 85025; 87086; 93005

== ENCOUNTER 2020-04-30 04:44 | Emergency (ER) | payer MEDICARE, MEDICAID ==
[2020-04-30] MEDS ORDERED: Haloperidol Lactate 5 MG/ML VIAL ONE (05:16)
[2020-04-30 05:41] LABS: #Basophils 0.1 thou/uL (0.0-0.2); #Eosinphils 0.1 thou/uL (0.0-0.7); #Monocytes 0.5 thou/uL (0.11-0.59); #Neutrophils 4.7 thou/uL (1.40-6.50); %Basophils 0.8 % (0.0-1.0); %Lymphocytes 15.2 % (21.0-51.0); %Monocytes 7.8 % (0.0-10.0); %Neutrophils 75.2 % (42.0-75.0); Hemoglobin 14.3 g/dL (14.0-18.0); Mean Corpuscular HGB CONC 32.8 g/dL (32.0-36.0); Mean Corpuscular Hemoglobin 31.2 pg (27.0-31.0); Mean Platelet Volume 8.4 fL (7.4-10.4); Platelet Count 221 thou/uL (130-400); RBC Distribution Width 12.4 % (11.5-14.5); Red Blood Cell (RBC) Count 4.59 mill/uL (4.70-6.10); White Blood Cell (WBC) Count 6.3 thou/uL (4.8-10.8)
[2020-04-30 05:51] LABS: ALT (SGPT) 15 U/L (8-55); AST (SGOT) 29 U/L (5-34); Albumin 4.1 g/dL (3.4-4.8); Alcohol Less than 10 mg/dL (Less than 10); Alkaline Phosphatase 62 U/L (40-110); Anion Gap 15 mmol/L (10-20); BUN (Urea Nitrogen) 9 mg/dL (8.4-25.7); Bilirubin, Total 0.4 mg/dL (0.2-1.2); Calc. Creatinine Clearance 0 mL/min (70-130); Calcium 9.5 mg/dL (7.8-10.44); Carbon Dioxide 24 mmol/L (23-31); Chloride 103 mmol/L (98-107); Globulin 3.6 g/dL (2.4-3.5); Glucose 85 mg/dL (80-115); Potassium 4.3 mmol/L (3.5-5.1); Protein, Total 7.7 g/dL (5.8-8.1); Sodium 138 mmol/L (136-145)
[2020-04-30 08:07] LABS: Bilirubin Negative (Negative); Blood, Urine Trace (Negative); Glucose, Urine (Dipstick) Negative (Negative); Ketone, Urine Negative (Negative); Leukocyte Negative (Negative); Nitrite Negative (Negative); Protein, Urine (Dipstick) Negative (Neg-Trace); Urobilinogen 0.2 mg/dL (Less than 2)
[2020-04-30 08:09] LABS: Clarity Clear (Clear); Specific Gravity, Urine 1.022 (1.002-1.036)
[2020-04-30 08:25] LABS: Bacteria/HPF Rare-Few HPF (None Seen); RBC/HPF 0-3 HPF (0-3); WBC/HPF 0-3 HPF (0-3)
[2020-04-30 08:26] LABS: Amphetamine Not Detected (NotDetected); Barbiturates Screen Not Detected (NotDetected); Benzodiazepine Screen Not Detected (NotDetected); Cocaine Metabolite Screen Not Detected (NotDetected); Medtox Control Line Valid? VALID (VALID); Medtox Reader # READER 1; Methadone Not Detected (NotDetected); Methamphetamine Not Detected (NotDetected); Opiate Screen Not Detected (NotDetected); Oxycodone Screen Not Detected (NotDetected); Phencyclidine (PCP) Not Detected (NotDetected); THC/Cannabinoid Screen Not Detected (NotDetected); Tricyclic Screen Not Detected (NotDetected)
[2020-04-30] MEDS ORDERED: Acetaminophen 325 MG TAB ONE (08:52)
== END 2020-04-30 08:58 | disposition home or self-care (01) ==
LOC: ERS 04:44
DX: R41.82 Altered mental status, unspecified (principal); F20.9 Schizophrenia, unspecified; E10.9 Type 1 diabetes mellitus without complications; I10 Essential (primary) hypertension; G20 Parkinson's disease; G40.909 Epilepsy, unspecified, not intractable, without status epilepticus; F03.90 Unspecified dementia, unspecified severity, without behavioral disturbance, psychotic disturbance, mood disturbance, and anxiety; F17.210 Nicotine dependence, cigarettes, uncomplicated
CPT/HCPCS: 36415; 36416; 80053; 80306; 80307; 81003; 84484; 85025; 93005; J1630

== ENCOUNTER 2020-04-30 13:11 | Inpatient (IN) | payer MEDICARE, MEDICAID ==
[2020-04-30 13:42] LABS: #Eosinphils 0.1 thou/uL (0.0-0.7); #Lymphocytes 1.1 thou/uL (1.20-3.40); #Monocytes 0.7 thou/uL (0.11-0.59); %Basophils 0.6 % (0.0-1.0); %Eosinophils 1.5 % (0.0-10.0); %Lymphocytes 13.6 % (21.0-51.0); %Monocytes 8.5 % (0.0-10.0); %Neutrophils 75.8 % (42.0-75.0); Hemoglobin 14.3 g/dL (14.0-18.0); Mean Corpuscular HGB CONC 32.4 g/dL (32.0-36.0); Mean Corpuscular Hemoglobin 30.9 pg (27.0-31.0); Mean Corpuscular Volume 95.3 fL (78.0-98.0); Mean Platelet Volume 8.5 fL (7.4-10.4); Platelet Count 228 thou/uL (130-400); RBC Distribution Width 12.6 % (11.5-14.5); Red Blood Cell (RBC) Count 4.64 mill/uL (4.70-6.10)
[2020-04-30] MEDS ORDERED: Dextrose 50% Abboject 50 ML SYRINGE ONE ×2 (14:08→18:16)
[2020-04-30 14:19] LABS: ALT (SGPT) 16 U/L (8-55); AST (SGOT) 42 U/L (5-34); Albumin 4.1 g/dL (3.4-4.8); Alkaline Phosphatase 65 U/L (40-110); Anion Gap 15 mmol/L (10-20); BUN (Urea Nitrogen) 13 mg/dL (8.4-25.7); Bilirubin, Total 0.2 mg/dL (0.2-1.2); Calc. Creatinine Clearance 0 mL/min (70-130); Calcium 9.6 mg/dL (7.8-10.44); Carbon Dioxide 29 mmol/L (23-31); Chloride 102 mmol/L (98-107); Globulin 4.1 g/dL (2.4-3.5); Glucose 44 mg/dL (80-115); Potassium 5.3 mmol/L (3.5-5.1); Protein, Total 8.2 g/dL (5.8-8.1); Sodium 141 mmol/L (136-145)
--- NOTE | 2020-04-30 15:13 | PDOC.HHP ---
Hospitalist HPI Altered mental status History of Present Illness: 69-year-old -[place] male who is very poor historian, he was brought to emergency room this morning for hypoglycemia, he was treated in the emergency room and after improvement in his blood sugar he was discharged to home, again later on he was found unresponsive and subsequently he was brought to emergency room, when he came to emergency room his blood sugar was 44, he responded to D50, subsequently D10 drip was started, patient is very poor historian, when asked patient he denies any diabetes history and denies taking any medication for diabetes. ED Course: D50 1 ampoule given, and dextrose 5 percent drip started VITAL SIGNS TueApr 30, 2020 13:30 BRAULIO Pham Miranda BP: 140/91, Pulse: 85, Resp: 19, Temp: 95.0 (Oral), Pain: 2, O2 sat: 98 on (Room Air), Time: 04/30/2020 13:30. VITAL SIGNS TueApr 30, 2020 14:22 BRAULIO Pham Miranda BP: 121/89, Pulse: 81, Resp: 15, O2 sat: 98 on (Room Air), Time: 04/30/2020 14:22. VITAL SIGNS TueApr 30, 2020 14:39 BRAULIO Pham Miranda Pulse: 75, Temp: 98.6 (Oral), Time: 04/30/2020 14:39. Allergies/Adverse Reactions: Allergy/AdvReac Type Severity Reaction Status Date / Time No Known Drug Allergies Allergy Verified 12/03/19 20:31 Home Medications: Medication Instructions Recorded Confirmed Type Paliperidone Palmitate [Invega 234 mg IM [id number] 11/27/19 12/03/19 History Sustenna] Benztropine [Cogentin] 1 mg PO DAILY tab 12/01/19 12/03/19 Rx Ziprasidone [Geodon] 40 mg PO HS cap 12/01/19 12/03/19 Rx Pantoprazole [Protonix] 40 mg PO BID 12/03/19 12/03/19 History Acetaminophen [Tylenol Regular 650 mg PO Q4H PRN tab 12/06/19 Rx Strength] Famotidine [Pepcid] 20 mg PO BID tab 12/06/19 Rx Past History: Past medical history Hypertension Secondary Parkinsonian Epilepsy Past psychiatric history Schizophrenia Past surgical history Abdominal surgery Social history Smokes about 1 pack/day, drinks alcohol weekly, he has a history of drug abuse in the past including cocaine and marijuana Hospitalist HPI ROS ROS unobtainable: due to mental status Hospitalist Exam General Appearance: NAD, ill appearing Eye: PERRL, anicteric sclera ENT: normocephalic atraumatic, no oropharyngeal lesions Neck: supple, symmetric, no JVD, no thyromegaly Heart: RRR, no murmur, no gallops, no rubs Respiratory: no wheezes, no rales, no ronchi Gastrointestinal: soft, non-tender, non-distended, normal bowel sounds Extremities: no cyanosis, no clubbing, no edema Skin: normal turgor, no lesions Neurological: no focal deficits Musculoskeletal: generalized weakness Psychiatric: not oriented Hospitalist Results Result Diagrams: 04/30/20 13:24 04/30/20 13:24 Lab results: Laboratory Last Values WBC 8.0 thou/uL (4.8-10.8) 04/30/20 13:24 RBC 4.64 mill/uL (4.70-6.10) L 04/30/20 13:24 Hgb 14.3 g/dL (14.0-18.0) 04/30/20 13:24 Hct 44.3 % (42.0-52.0) 04/30/20 13:24 MCV 95.3 fL (78.0-98.0) 04/30/20 13:24 MCH 30.9 pg (27.0-31.0) 04/30/20 13:24 MCHC 32.4 g/dL (32.0-36.0) 04/30/20 13:24 RDW 12.6 % (11.5-14.5) 04/30/20 13:24 Plt Count 228 thou/uL (130-400) 04/30/20 13:24 MPV 8.5 fL (7.4-10.4) 04/30/20 13:24 Neutrophils % 75.8 % (42.0-75.0) H 04/30/20 13:24 Lymphocytes % 13.6 % (21.0-51.0) L 04/30/20 13:24 Monocytes % 8.5 % (0.0-10.0) 04/30/20 13:24 Eosinophils % 1.5 % (0.0-10.0) 04/30/20 13:24 Basophils % 0.6 % (0.0-1.0) 04/30/20 13:24 Neutrophils # 6.0 thou/uL (1.40-6.50) 04/30/20 13:24 Lymphocytes # 1.1 thou/uL (1.20-3.40) L 04/30/20 13:24 Monocytes # 0.7 thou/uL (0.11-0.59) H 04/30/20 13:24 Eosinophils # 0.1 thou/uL (0.0-0.7) 04/30/20 13:24 Basophils # 0.0 thou/uL (0.0-0.2) 04/30/20 13:24 Sodium 141 mmol/L (136-145) 04/30/20 13:24 Potassium 5.3 mmol/L (3.5-5.1) H 04/30/20 13:24 Chloride 102 mmol/L (98-107) 04/30/20 13:24 Carbon Dioxide 29 mmol/L (23-31) 04/30/20 13:24 Anion Gap 15 mmol/L (10-20) 04/30/20 13:24 BUN 13 mg/dL (8.4-25.7) 04/30/20 13:24 Creatinine 0.91 mg/dL (0.7-1.3) 04/30/20 13:24 Estimated GFR (MDRD) Greater than 90 04/30/20 13:24 Glucose 44 mg/dL (80-115) L* 04/30/20 13:24 Calcium 9.6 mg/dL (7.8-10.44) 04/30/20 13:24 Total Bilirubin 0.2 mg/dL (0.2-1.2) 04/30/20 13:24 AST 42 U/L (5-34) H 04/30/20 13:24 ALT 16 U/L (8-55) 04/30/20 13:24 Alkaline Phosphatase 65 U/L (40-110) 04/30/20 13:24 Serum Total Protein 8.2 g/dL (5.8-8.1) H 04/30/20 13:24 Albumin 4.1 g/dL (3.4-4.8) 04/30/20 13:24 Globulin 4.1 g/dL (2.4-3.5) H 04/30/20 13:24 Albumin/Globulin Ratio 1.0 g/dL (1.2-2.2) L 04/30/20 13:24 Hospitalist H&P A/P (1) Acute metabolic encephalopathy due to hypoglycemia Code(s): G93.41 - METABOLIC ENCEPHALOPATHY; E16.2 - HYPOGLYCEMIA, UNSPECIFIED Status: Acute (2) FTT (failure to thrive) in adult Status: Chronic (3) Physical deconditioning Code(s): R53.81 - OTHER MALAISE Status: Chronic (4) Schizoaffective disorder Code(s): F25.9 - SCHIZOAFFECTIVE DISORDER, UNSPECIFIED Status: Chronic Qualifiers: Schizoaffective disorder type: unspecified Plan: Observation to medical Continue 5% dextrose 800 mL/h, Monitor for recurrent hypoglycemia Check urine drug screen Check COVID-19 Restart selected home medication PT evaluation DVT prophylaxis SCD GI prophylaxis Protonix CODE STATUS patient is full code Disposition plan within 24 hours.
[2020-04-30] MEDS ORDERED: Loperamide HCl 2 MG CAP PO PRN (17:17)
[2020-04-30] MEDS ORDERED: Dextrose 50% Abboject 50 ML SYRINGE SLOW IVP PRN (17:17)
[2020-04-30] MEDS ORDERED: Acetaminophen 325 MG TAB PO PRN (17:17)
[2020-04-30] MEDS ORDERED: HYDROcodone/Acetaminophen 5/325 mg Tablet PO PRN (17:17)
[2020-04-30] MEDS ORDERED: hydrALAZINE 20 MG/ML VIAL SLOW IVP PRN (17:17)
[2020-04-30] MEDS ORDERED: Bisacodyl 5 MG TAB PO PRN (17:17)
[2020-04-30] MEDS ORDERED: Dextrose 10% in Water 1,000 ML IV SCH (17:17)
[2020-04-30] MEDS ORDERED: Guaifenesin DM 100-10/5 ML UDCUP PO PRN (17:17)
[2020-04-30] MEDS ORDERED: Benzonatate 100 MG CAP PO PRN (17:17)
[2020-04-30] MEDS ORDERED: Dextrose 5% in Water 1,000 ML IV PRN (17:17)
[2020-04-30] MEDS ORDERED: Sodium Chloride 0.65% Nasal 44 ML BOT EA NARE PRN (17:17)
[2020-04-30] MEDS ORDERED: Calcium Carbonate 500 MG ChewTAB PO PRN ×2 (17:17)
[2020-04-30] MEDS ORDERED: Loratadine 10 MG TAB PO PRN (17:17)
[2020-04-30] MEDS ORDERED: Zolpidem Tartrate 5 MG TAB PO PRN (17:17)
[2020-04-30] MEDS ORDERED: Cepastat Lozenges 1 LOZ PO PRN (17:17)
[2020-04-30] MEDS ORDERED: Ondansetron ODT 4 MG TAB PO PRN (17:17)
[2020-04-30] MEDS ORDERED: Bisacodyl 10 MG SUPP PR PRN (17:17)
[2020-04-30] MEDS ORDERED: Ondansetron PF 4 MG/2 ML Vial IVP PRN (17:17)
[2020-04-30] MEDS ORDERED: Senokot S 8.6-50 MG TAB PO PRN (17:17)
[2020-04-30] MEDS: Dextrose 5% in Water 1,000 ML IV SCH (19:56)
[2020-04-30 20:42] LABS: SARS-CoV-2 PCR by NAA Not Detected (NotDetected)
[2020-04-30] MEDS: Ziprasidone 20 MG CAP PO SCH (21:55)
[2020-05-01] MEDS: Dextrose 5% in Water 1,000 ML IV SCH ×3 (04:32→20:07)
[2020-05-01 06:10] LABS: #Basophils 0.1 thou/uL (0.0-0.2); #Eosinphils 0.1 thou/uL (0.0-0.7); #Lymphocytes 1.5 thou/uL (1.20-3.40); #Monocytes 0.6 thou/uL (0.11-0.59); #Neutrophils 4.8 thou/uL (1.40-6.50); %Basophils 1.1 % (0.0-1.0); %Eosinophils 1.7 % (0.0-10.0); %Lymphocytes 21.3 % (21.0-51.0); %Monocytes 8.7 % (0.0-10.0); %Neutrophils 67.3 % (42.0-75.0); Hemoglobin 12.6 g/dL (14.0-18.0); Mean Corpuscular HGB CONC 32.2 g/dL (32.0-36.0); Mean Corpuscular Hemoglobin 30.7 pg (27.0-31.0); Mean Corpuscular Volume 95.4 fL (78.0-98.0); Mean Platelet Volume 7.8 fL (7.4-10.4); Platelet Count 210 thou/uL (130-400); RBC Distribution Width 12.5 % (11.5-14.5); Red Blood Cell (RBC) Count 4.11 mill/uL (4.70-6.10); White Blood Cell (WBC) Count 7.1 thou/uL (4.8-10.8)
[2020-05-01 06:13] LABS: Hemoglobin A1c 5.6 % (4.0-6.0)
[2020-05-01 06:31] LABS: ALT (SGPT) 12 U/L (8-55); AST (SGOT) 25 U/L (5-34); Albumin 3.3 g/dL (3.4-4.8); Alkaline Phosphatase 50 U/L (40-110); Anion Gap 11 mmol/L (10-20); BUN (Urea Nitrogen) 11 mg/dL (8.4-25.7); Bilirubin, Total 0.3 mg/dL (0.2-1.2); Calc. Creatinine Clearance 81 mL/min (70-130); Calcium 8.3 mg/dL (7.8-10.44); Carbon Dioxide 27 mmol/L (23-31); Chloride 103 mmol/L (98-107); Globulin 2.8 g/dL (2.4-3.5); Glucose 62 mg/dL (80-115); Potassium 3.7 mmol/L (3.5-5.1); Protein, Total 6.1 g/dL (5.8-8.1); Sodium 137 mmol/L (136-145)
[2020-05-01] MEDS: Benztropine 1 MG TAB PO SCH (08:38)
[2020-05-01] MEDS ORDERED: FLU VACC QS2020-21(65YR UP)/PF 240 MCG/0.7 ML SYRINGE IM ONE (09:00)
--- NOTE | 2020-05-01 09:36 | PDOC.HOSPP ---
- Subjective Encounter Date: 05/01/20 Encounter Time: 08:00 Subjective: Patient has taken several pills of glipizide at home, this morning he was chewing a piece of paper, his blood sugar still runs in 60s despite dextrose drip, he is ambulatory, - Objective Vital Signs & Weight: Vital Signs (12 hours) Temp Pulse Resp BP Pulse Ox 05/01/20 08:00 98.1 F 79 20 100/64 100 05/01/20 05:00 98 F 82 18 123/57 L 98 05/01/20 01:46 98.0 F 77 18 106/64 100 Weight Weight 160 lb 11.2 oz Result Diagrams: 05/01/20 05:48 05/01/20 05:48 Additional Labs: Accuchecks 05/01/20 04/30/20 04/30/20 05:10 19:33 17:20 POC Glucose 62 L 63 L 67 L Hospitalist ROS - Review of Systems ENT: denies: ear pain, ear discharge, nose pain, nose discharge, nose congestion, mouth pain, mouth swelling, throat pain, throat swelling, other Respiratory: denies: cough, dry, shortness of breath, hemoptysis, SOB with excertion, pleuritic pain, sputum, wheezing, other Cardiovascular: denies: chest pain, palpitations, orthopnea, paroxysmal noc. dyspnea, edema, light headedness, other Gastrointestinal: denies: nausea, vomiting, abdominal pain, diarrhea, constipation, melena, hematochezia, other Genitourinary: denies: dysuria, frequency, incontinence, hematuria, retention, other Musculoskeletal: denies: neck pain, shoulder pain, arm pain, back pain, hand pain, leg pain, foot pain, other - Medication Medications: Active Medications Generic Name Dose Route Start Last Admin Trade Name Freq PRN Reason Stop Dose Admin Benztropine Mesylate 1 mg 05/01/20 09:00 05/01/20 08:38 Benztropine 1 Mg Tab PO 1 mg DAILY OLGA Administration Dextrose/Water 25 gm 04/30/20 17:17 05/01/20 01:04 Dextrose 50% Abboject 50 Ml Syringe SLOW IVP 25 gm PRN PRN Administration Hypoglycemia Dextrose/Water 1,000 mls @ 100 mls/hr 04/30/20 17:30 05/01/20 08:39 D5w IV 1,000 mls .Q10H OLGA Administration Pantoprazole Sodium 40 mg 05/01/20 09:00 05/01/20 08:38 Pantoprazole 40 Mg Tab PO 40 mg DAILY OLGA Administration Ziprasidone 40 mg 04/30/20 21:00 04/30/20 21:55 Ziprasidone 20 Mg Cap PO Not Given HS [facility] Hospitalist Exam Vitals: Vital Signs (12 hours) Temp Pulse Resp BP Pulse Ox 05/01/20 08:00 98.1 F 79 20 100/64 100 05/01/20 05:00 98 F 82 18 123/57 L 98 05/01/20 01:46 98.0 F 77 18 106/64 100 Weight Weight 160 lb 11.2 oz General Appearance: NAD, awake alert Eye: PERRL, anicteric sclera ENT: normocephalic atraumatic, no oropharyngeal lesions Neck: supple, symmetric, no JVD, no thyromegaly Heart: RRR, no murmur, no gallops, no rubs Respiratory: no wheezes, no rales, no ronchi Gastrointestinal: soft, non-tender, non-distended, normal bowel sounds Extremities: no cyanosis, no clubbing Skin: normal turgor, no lesions Neurological: no focal deficits Musculoskeletal: normal tone, normal strength Psychiatric: normal affect Hosp A/P (1) Acute metabolic encephalopathy due to hypoglycemia Code(s): G93.41 - METABOLIC ENCEPHALOPATHY; E16.2 - HYPOGLYCEMIA, UNSPECIFIED Status: Acute (2) FTT (failure to thrive) in adult Status: Chronic (3) Physical deconditioning Code(s): R53.81 - OTHER MALAISE Status: Chronic (4) Schizoaffective disorder Code(s): F25.9 - SCHIZOAFFECTIVE DISORDER, UNSPECIFIED Status: Chronic Qualifiers: Schizoaffective disorder type: unspecified - Plan old records reviewed/req As patient still runs a low blood sugar despite dextrose drip, worried about recurrent hypoglycemia Encouraged oral intake We will monitor and see how he does without the dextrose drip whether his blood sugar drops or not,
--- NOTE | 2020-05-01 09:37 | PDOC.DS.DS ---
Provider Date of Admission: 04/30/20 15:01 Admitting Provider: Mele Lancaster MD Primary Care Physician: NO PCP PROVIDER Course Hospital Course: 69-year-old -[place]iss male who is very poor historian, he was brought to emergency room in the morning on the day of admission for hypoglycemia, he was treated in the emergency room and after improvement in his blood sugar he was discharged to home, again later on he was found unresponsive and subsequently he was brought to emergency room, when he came to emergency room his blood sugar was 44, he responded to D50, subsequently D10 drip was started, patient is very poor historian, when asked patient he denies any diabetes history and denies taking any medication for diabetes. Per report patient has taken several pills of diabetes medication from other family member, patient required admission in hospital for ongoing dextrose drip, Resuscitation Status: 04/30/20 15:01 Resuscitation Status Routine Resuscitation Status: FULL: Full Resuscitation Lab Results: 05/01/20 05:48 05/01/20 05:48 Abnormal Lab Results - Last 48 hrs 04/30/20 13:24: RBC 4.64 L, Neutrophils % 75.8 H, Lymphocytes % 13.6 L, Lymphocytes # 1.1 L, Monocytes # 0.7 H 04/30/20 13:24: Potassium 5.3 H, AST 42 H, Serum Total Protein 8.2 H, Globulin 4.1 H, Albumin/Globulin Ratio 1.0 L 05/01/20 05:48: Albumin 3.3 L 05/01/20 05:48: RBC 4.11 L, Hgb 12.6 L, Hct 39.2 L, Basophils % 1.1 H, Monocytes # 0.6 H Vitals: Vital Signs (12 hours) Temp Pulse Resp BP Pulse Ox 05/01/20 08:00 98.1 F 79 20 100/64 100 05/01/20 05:00 98 F 82 18 123/57 L 98 05/01/20 01:46 98.0 F 77 18 106/64 100 Weight Weight 160 lb 11.2 oz Physical Exam: The patient was seen and examined on the day of discharge. General Appearance: NAD, awake alert Eye: PERRL, anicteric sclera ENT: normocephalic atraumatic, no oropharyngeal lesions Neck: supple, symmetric, no JVD, no thyromegaly Respiratory: no wheezes, no rales, no ronchi Cardiovascular: RRR, no murmur, no gallops, no rubs Gastrointestinal: soft, non-tender, non-distended, normal bowel sounds Extremities: no cyanosis, no clubbing, no edema Skin: normal turgor, no lesions Neurological: no focal deficits Musculoskeletal: normal tone, normal strength PSYCH: normal affect, normal behavior Problem (1) Acute metabolic encephalopathy due to hypoglycemia Code(s): G93.41 - METABOLIC ENCEPHALOPATHY; E16.2 - HYPOGLYCEMIA, UNSPECIFIED Status: Acute (2) FTT (failure to thrive) in adult Status: Chronic (3) Physical deconditioning Code(s): R53.81 - OTHER MALAISE Status: Chronic (4) Schizoaffective disorder Code(s): F25.9 - SCHIZOAFFECTIVE DISORDER, UNSPECIFIED Status: Chronic Qualifiers: Schizoaffective disorder type: unspecified Qualified Code(s): F25.9 - Schizoaffective disorder, unspecified Plan Home Medications: Medication Instructions Recorded Confirmed Type Paliperidone Palmitate [Invega 234 mg IM [id number] 11/27/19 05/01/20 History Sustenna] Benztropine [Cogentin] 1 mg PO DAILY tab 12/01/19 05/01/20 Rx Ziprasidone [Geodon] 40 mg PO HS cap 12/01/19 05/01/20 Rx Allergies: No Known Drug Allergies Allergy (Verified 12/03/19 20:31) Activity:: Activity as Tolerated Nourishment:: Regular Diet Therapies:: Not Applicable Equipment/Supplies:: Not Applicable IV Therapy:: Not Applicable Referrals: PROVIDER,NO PCP [Primary Care Provider] - Disposition: HOME Quality CORE MEASURES:: N/A
[2020-05-01 10:11] LABS: Bacteria/HPF None Seen HPF (None Seen); Bilirubin Negative (Negative); Blood, Urine Negative (Negative); Clarity Clear (Clear); Glucose, Urine (Dipstick) Normal (Negative); Ketone, Urine Negative (Negative); Leukocyte Negative Leu/uL (Negative); Nitrite Negative (Negative); Protein, Urine (Dipstick) Negative (Neg-Trace); RBC/HPF 0-3 HPF (0-3); Specific Gravity, Urine 1.014 (1.002-1.036); Squamous Epithelial 0-3 HPF (0-3); Urobilinogen Normal mg/dL (Less than 2); WBC/HPF 0-3 HPF (0-3); pH, Urine 5.5 (5.0-9.0)
[2020-05-01 10:18] LABS: Urine Culture Reflex No No
[2020-05-01 10:26] LABS: Amphetamine Not Detected (NotDetected); Barbiturates Screen Not Detected (NotDetected); Benzodiazepine Screen Not Detected (NotDetected); Cocaine Metabolite Screen Not Detected (NotDetected); Medtox Control Line Valid? VALID (VALID); Medtox Reader # READER 4; Methadone Not Detected (NotDetected); Methamphetamine Not Detected (NotDetected); Opiate Screen Not Detected (NotDetected); Oxycodone Screen Not Detected (NotDetected); Phencyclidine (PCP) Not Detected (NotDetected); THC/Cannabinoid Screen Not Detected (NotDetected); Tricyclic Screen Not Detected (NotDetected)
[2020-05-01] MEDS: Ziprasidone 20 MG CAP PO SCH (20:06)
[2020-05-02] MEDS: Benztropine 1 MG TAB PO SCH (08:44)
[2020-05-02] MEDS: Dextrose 5% in Water 1,000 ML IV SCH (08:45)
--- NOTE | 2020-05-02 13:54 | PDOC.HOSPP ---
- Subjective Encounter Date: 05/02/20 Encounter Time: 10:00 Subjective: Patient seen and examined. No new complaints. No overnight events - Objective Vital Signs & Weight: Vital Signs (12 hours) Temp Pulse Resp BP Pulse Ox 05/02/20 11:55 98.1 F 84 18 121/81 100 05/02/20 10:55 98 05/02/20 07:32 98.1 F 83 20 129/73 100 Weight Weight 160 lb 11.2 oz Result Diagrams: 05/01/20 05:48 05/01/20 05:48 Additional Labs: Accuchecks 05/02/20 05/02/20 05/02/20 11:22 09:22 06:11 POC Glucose 117 H 216 H 108 H 05/02/20 05/01/20 05/01/20 00:56 20:30 16:01 POC Glucose 129 H 127 H 138 H Hospitalist ROS - Review of Systems ENT: denies: ear pain, ear discharge, nose pain, nose discharge, nose congestion, mouth pain, mouth swelling, throat pain, throat swelling, other Respiratory: denies: cough, dry, shortness of breath, hemoptysis, SOB with excertion, pleuritic pain, sputum, wheezing, other Cardiovascular: denies: chest pain, palpitations, orthopnea, paroxysmal noc. dyspnea, edema, light headedness, other Gastrointestinal: denies: nausea, vomiting, abdominal pain, diarrhea, constipation, melena, hematochezia, other Genitourinary: denies: dysuria, frequency, incontinence, hematuria, retention, other Musculoskeletal: denies: neck pain, shoulder pain, arm pain, back pain, hand pain, leg pain, foot pain, other - Medication Medications: Active Medications Generic Name Dose Route Start Last Admin Trade Name Freq PRN Reason Stop Dose Admin Benztropine Mesylate 1 mg 05/01/20 09:00 05/02/20 08:44 Benztropine 1 Mg Tab PO 1 mg DAILY OLGA Administration Dextrose/Water 25 gm 04/30/20 17:17 05/01/20 01:04 Dextrose 50% Abboject 50 Ml Syringe SLOW IVP 25 gm PRN PRN Administration Hypoglycemia Pantoprazole Sodium 40 mg 05/01/20 09:00 05/02/20 08:44 Pantoprazole 40 Mg Tab PO 40 mg DAILY OLGA Administration Ziprasidone 40 mg 04/30/20 21:00 05/01/20 20:06 Ziprasidone 20 Mg Cap PO 40 mg HS OLGA Administration Zolpidem Tartrate 5 mg 04/30/20 17:17 05/02/20 08:44 Zolpidem Tartrate 5 Mg Tab PO 5 mg HSPRN PRN Administration Insomnia Hospitalist Exam Vitals: Vital Signs (12 hours) Temp Pulse Resp BP Pulse Ox 05/02/20 11:55 98.1 F 84 18 121/81 100 05/02/20 10:55 98 05/02/20 07:32 98.1 F 83 20 129/73 100 Weight Weight 160 lb 11.2 oz General Appearance: NAD, awake alert Eye: PERRL, anicteric sclera ENT: normocephalic atraumatic, no oropharyngeal lesions Neck: supple, symmetric, no JVD, no thyromegaly Heart: no murmur, no gallops, no rubs Respiratory: no wheezes, no rales, no ronchi Gastrointestinal: soft, non-tender, non-distended, normal bowel sounds Extremities: no clubbing, no edema Skin: normal turgor, no lesions Neurological: no focal deficits Musculoskeletal: normal tone, normal strength Psychiatric: normal affect, normal behavior Hosp A/P (1) Acute metabolic encephalopathy due to hypoglycemia Code(s): G93.41 - METABOLIC ENCEPHALOPATHY; E16.2 - HYPOGLYCEMIA, UNSPECIFIED Status: Acute (2) FTT (failure to thrive) in adult Status: Chronic (3) Physical deconditioning Code(s): R53.81 - OTHER MALAISE Status: Chronic (4) Schizoaffective disorder Code(s): F25.9 - SCHIZOAFFECTIVE DISORDER, UNSPECIFIED Status: Chronic Qualifiers: Schizoaffective disorder type: unspecified Qualified Code(s): F25.9 - Schizoaffective disorder, unspecified - Plan old records reviewed/req Discontinue dextrose containing fluid Watch for any hypoglycemia off IV fluid If there is no further hypoglycemia then will consider discharge tomorrow morning.
[2020-05-02] MEDS: Ziprasidone 20 MG CAP PO SCH (20:19)
[2020-05-03] MEDS: Benztropine 1 MG TAB PO SCH (08:29)
[2020-05-03 17:14] VITALS: BP 118/79; TEMP 98.2
--- NOTE | 2020-05-03 17:16 | PDOC.HOSPP ---
- Subjective Encounter Date: 05/03/20 Encounter Time: 17:14 Subjective: Mr. Crawford was seen today in follow-up of hypoglycemia. He does not have any complaints today. He admits that he took a handful of his sisters medications. She is a diabetic. - Objective Vital Signs & Weight: Vital Signs (12 hours) Temp Pulse Resp BP BP Pulse Ox 05/03/20 17:13 98.2 F 89 18 118/79 97 05/03/20 11:24 98.5 F 88 20 108/69 100 05/03/20 07:50 98 05/03/20 07:49 97.6 F 82 20 104/69 98 Weight Weight 160 lb 11.2 oz I&O: 05/02/20 05/03/20 05/04/20 06:59 06:59 06:59 Intake Total 1700 Output Total 2400 Balance -700 Result Diagrams: 05/01/20 05:48 05/01/20 05:48 Additional Labs: Accuchecks 05/03/20 05/03/20 05/03/20 16:34 11:22 08:28 POC Glucose 82 80 66 L 05/03/20 05/03/20 05/02/20 04:36 00:25 21:58 POC Glucose 150 H 94 104 H Hospitalist ROS - Medication Medications: Active Medications Generic Name Dose Route Start Last Admin Trade Name Freq PRN Reason Stop Dose Admin Benztropine Mesylate 1 mg 05/01/20 09:00 05/03/20 08:29 Benztropine 1 Mg Tab PO 1 mg DAILY OLGA Administration Dextrose/Water 25 gm 04/30/20 17:17 05/01/20 01:04 Dextrose 50% Abboject 50 Ml Syringe SLOW IVP 25 gm PRN PRN Administration Hypoglycemia Pantoprazole Sodium 40 mg 05/01/20 09:00 05/03/20 08:29 Pantoprazole 40 Mg Tab PO 40 mg DAILY OLGA Administration Ziprasidone 40 mg 04/30/20 21:00 05/02/20 20:19 Ziprasidone 20 Mg Cap PO 40 mg HS OLGA Administration Zolpidem Tartrate 5 mg 04/30/20 17:17 05/02/20 08:44 Zolpidem Tartrate 5 Mg Tab PO 5 mg HSPRN PRN Administration Insomnia Hospitalist Exam Vitals: Vital Signs (12 hours) Temp Pulse Resp BP BP Pulse Ox 05/03/20 17:13 98.2 F 89 18 118/79 97 05/03/20 11:24 98.5 F 88 20 108/69 100 05/03/20 07:50 98 05/03/20 07:49 97.6 F 82 20 104/69 98 Weight Weight 160 lb 11.2 oz General Appearance: NAD, awake alert Eye: PERRL, anicteric sclera Heart: RRR, no murmur, no gallops, no rubs, normal peripheral pulses Respiratory: CTAB, no wheezes, no rales, no ronchi, normal chest expansion, no tachypnea, normal percussion Gastrointestinal: soft, non-tender, non-distended, normal bowel sounds, no palpable masses, no hepatomegaly Extremities: no cyanosis, no edema (pulses are palpable, no lesions) Hosp A/P (1) Alcohol abuse Code(s): F10.10 - ALCOHOL ABUSE, UNCOMPLICATED Status: Chronic (2) Physical deconditioning Code(s): R53.81 - OTHER MALAISE Status: Chronic (3) Schizoaffective disorder Code(s): F25.9 - SCHIZOAFFECTIVE DISORDER, UNSPECIFIED Status: Chronic Qualifiers: Schizoaffective disorder type: unspecified Qualified Code(s): F25.9 - Schizoaffective disorder, unspecified (4) Hypoglycemia Code(s): E16.2 - HYPOGLYCEMIA, UNSPECIFIED Status: Resolved - Plan * Hypoglycemia- likely due to taking his sister's medications. Itried to call the numbers listed in the chart to discuss with his sister. One was to Nursing Home Facility, and the other phone number was disconnected. The patinet does not know his sister's phone number. I have axplained to him the dangers of taking other people's medication. He voices understanding * He tells me he does not have his own medications * He will be sent home with a prescription
--- NOTE | 2020-05-03 18:13 | PDOC.DS.DS ---
Provider Date of Admission: 05/01/20 12:27 Admitting Provider: Mele Lancaster MD Primary Care Physician: NO PCP PROVIDER Course Hospital Course: 69-year-old -[place] male who is very poor historian, he was brought to emergency room in the morning on the day of admission for hypoglycemia, he was treated in the emergency room and after improvement in his blood sugar he was discharged to home, again later on he was found unresponsive and subsequently he was brought to emergency room, when he came to emergency room his blood sugar was 44, he responded to D50, subsequently D10 drip was started, patient is very poor historian, when asked patient he denies any diabetes history and denies taking any medication for diabetes. Per report patient has taken several pills of diabetes medication from other family member, patient required admission in hospital for ongoing dextrose drip. The patient admitted to hi, when seen on the following day that he took his siter's medications. With the help of the charge nurse we were able to final locate family members ( his brother -in- law ), who says his sister should be coming to pick him up. At that time his sister will be informed on what has happened, and to secure her medications. ( Addendum to Note entered by Dr.T. Barahona ) Resuscitation Status: 04/30/20 15:01 Resuscitation Status Routine Resuscitation Status: FULL: Full Resuscitation Lab Results: 05/01/20 05:48 05/01/20 05:48 Vitals: Vital Signs (12 hours) Temp Pulse Resp BP BP Pulse Ox 05/03/20 17:13 98.2 F 89 18 118/79 97 05/03/20 11:24 98.5 F 88 20 108/69 100 05/03/20 07:50 98 05/03/20 07:49 97.6 F 82 20 104/69 98 Weight Weight 160 lb 11.2 oz Physical Exam: The patient was seen and examined on the day of discharge. Problem (1) Alcohol abuse Code(s): F10.10 - ALCOHOL ABUSE, UNCOMPLICATED Status: Chronic (2) Physical deconditioning Code(s): R53.81 - OTHER MALAISE Status: Chronic (3) Schizoaffective disorder Code(s): F25.9 - SCHIZOAFFECTIVE DISORDER, UNSPECIFIED Status: Chronic Qualifiers: Schizoaffective disorder type: unspecified Qualified Code(s): F25.9 - Schizoaffective disorder, unspecified (4) Hypoglycemia Code(s): E16.2 - HYPOGLYCEMIA, UNSPECIFIED Status: Resolved Plan Home Medications: Medication Instructions Recorded Confirmed Type Paliperidone Palmitate [Invega 234 mg IM [id number] 11/27/19 05/01/20 History Sustenna] Benztropine [Cogentin] 1 mg PO DAILY tab 12/01/19 05/01/20 Rx Ziprasidone [Geodon] 40 mg PO HS cap 12/01/19 05/01/20 Rx Allergies: No Known Drug Allergies Allergy (Verified 12/03/19 20:31) Activity:: Activity as Tolerated Nourishment:: Regular Diet Therapies:: Not Applicable Equipment/Supplies:: Not Applicable IV Therapy:: Not Applicable Referrals: PROVIDER,NO PCP [Primary Care Provider] - Disposition: HOME Quality CORE MEASURES:: N/A
== END 2020-05-03 18:26 | disposition home or self-care (01) | DRG 72 ==
LOC: ERS 13:11 → ERHOLD 15:01 → T4-A 19:24 → OBSVTOIN 05-01 12:27
PROVIDERS: ADMIT Internal Medicine; ATTEND Internal Medicine
DX: G93.41 Metabolic encephalopathy (principal); E10.649 Type 1 diabetes mellitus with hypoglycemia without coma; G20 Parkinson's disease; G40.909 Epilepsy, unspecified, not intractable, without status epilepticus; F20.9 Schizophrenia, unspecified; F03.90 Unspecified dementia, unspecified severity, without behavioral disturbance, psychotic disturbance, mood disturbance, and anxiety; F17.210 Nicotine dependence, cigarettes, uncomplicated; I10 Essential (primary) hypertension; R53.81 Other malaise; R62.7 Adult failure to thrive; F10.10 Alcohol abuse, uncomplicated; Z68.20 Body mass index [BMI] 20.0-20.9, adult; Z79.899 Other long term (current) drug therapy; Z20.822 Contact with and (suspected) exposure to COVID-19
CPT/HCPCS: 36415; 36416; 80053; 80306; 80307; 81001; 81003; 83036; 84484; 85025; 87635; 93005; 96365; 96366; 96372; 96375; 96376; G0378; J1630; U0003; U0005

== ENCOUNTER 2022-09-30 10:04 | Inpatient (IN) | payer MEDICARE, MEDICAID ==
[2022-09-30] MEDS ORDERED: Ondansetron PF 4 MG/2 ML Vial ONE (10:39)
[2022-09-30 11:10] LABS: #Monocytes 0.2 thou/uL (0.11-0.59); #Neutrophils 5.8 thou/uL (1.40-6.50); %Basophils 0.3 % (0.0-1.0); %Eosinophils 0.3 % (0.0-10.0); %Lymphocytes 6.8 % (21.0-51.0); %Monocytes 3.2 % (0.0-10.0); %Neutrophils 89.2 % (42.0-75.0); Hemoglobin 13.5 g/dL (14.0-18.0); Mean Corpuscular HGB CONC 32.6 g/dL (32.0-36.0); Mean Corpuscular Volume 95.2 fl (78.0-98.0); Mean Platelet Volume 10.5 fL (7.4-10.4); Platelet Count 167 10x3/uL (130-400); Red Blood Cell (RBC) Count 4.35 mill/uL (4.70-6.10); White Blood Cell (WBC) Count 6.5 10x3/uL (4.8-10.8)
[2022-09-30 11:35] LABS: ALT (SGPT) 26 U/L (8-55); AST (SGOT) 39 U/L (5-34); Albumin 3.7 g/dL (3.4-4.8); Alkaline Phosphatase 50 U/L (40-110); Anion Gap 13 mmol/L (10-20); BUN (Urea Nitrogen) 11 mg/dL (8.4-25.7); Bilirubin, Total 1.1 mg/dL (0.2-1.2); CK (CPK) 580 U/L (30-200); Calc. Creatinine Clearance 0 mL/min (70-130); Calcium 9.6 mg/dL (7.8-10.44); Carbon Dioxide 27 mmol/L (23-31); Chloride 105 mmol/L (98-107); Estimated GFR 93; Globulin 3.1 g/dL (2.4-3.5); Glucose 115 mg/dL (83-110); Lipase 8 U/L (8-78); Magnesium 1.7 mg/dL (1.6-2.6); Potassium 3.9 mmol/L (3.5-5.1); Protein, Total 6.8 g/dL (5.8-8.1); Sodium 141 mmol/L (136-145)
[2022-09-30] MEDS ORDERED: Ondansetron PF 4 MG/2 ML Vial IVP PRN (14:37)
[2022-09-30] MEDS ORDERED: Morphine 4 MG/ML VIAL SLOW IVP PRN (14:39)
[2022-09-30] MEDS ORDERED: Iopamidol-370 76% 500 ML MDV (1 ML CHARGE) ONE (15:12)
[2022-09-30 15:25] VITALS: BMI 22.4
[2022-09-30] MEDS: Dextrose 5 % And 0.9 % NaCl 1,000 ML IV SCH (15:54)
[2022-10-01] MEDS: Dextrose 5 % And 0.9 % NaCl 1,000 ML IV SCH ×2 (01:25→11:19)
[2022-10-01 06:05] LABS: #Eosinphils 0.1 thou/uL (0.0-0.7); #Monocytes 0.4 thou/uL (0.11-0.59); #Neutrophils 1.7 thou/uL (1.40-6.50); %Basophils 0.6 % (0.0-1.0); %Eosinophils 2.2 % (0.0-10.0); %Lymphocytes 32.6 % (21.0-51.0); %Monocytes 12.3 % (0.0-10.0); %Neutrophils 51.7 % (42.0-75.0); Hemoglobin 12.3 g/dL (14.0-18.0); Mean Corpuscular HGB CONC 31.9 g/dL (32.0-36.0); Mean Corpuscular Hemoglobin 31.1 pg (27.0-31.0); Mean Corpuscular Volume 97.7 fl (78.0-98.0); Mean Platelet Volume 10.7 fL (7.4-10.4); Platelet Count 154 10x3/uL (130-400); Red Blood Cell (RBC) Count 3.95 mill/uL (4.70-6.10); White Blood Cell (WBC) Count 3.3 10x3/uL (4.8-10.8)
[2022-10-01 06:33] LABS: Anion Gap 11 mmol/L (10-20); BUN (Urea Nitrogen) 9 mg/dL (8.4-25.7); CK (CPK) 258 U/L (30-200); Calc. Creatinine Clearance 80 mL/min (70-130); Calcium 8.4 mg/dL (7.8-10.44); Carbon Dioxide 24 mmol/L (23-31); Chloride 111 mmol/L (98-107); Estimated GFR 95; Glucose 101 mg/dL (83-110); Potassium 4.3 mmol/L (3.5-5.1); Sodium 142 mmol/L (136-145)
[2022-10-01 06:34] LABS: Amphetamine Not Detected (NotDetected); Barbiturates Screen Not Detected (NotDetected); Benzodiazepine Screen Not Detected (NotDetected); Cocaine Metabolite Screen Detected (NotDetected); Methadone Not Detected (NotDetected); Methamphetamine Not Detected (NotDetected); Opiate Screen Not Detected (NotDetected); Oxycodone Screen Not Detected (NotDetected); Phencyclidine (PCP) Not Detected (NotDetected); THC/Cannabinoid Screen Not Detected (NotDetected); Tricyclic Screen Not Detected (NotDetected)
[2022-10-01 12:11] VITALS: TEMP 97.9
[2022-10-01 12:17] VITALS: BP 166/86
[2022-10-01] MEDS ORDERED: Ziprasidone 20 MG CAP PO SCH (17:00)
== END 2022-10-01 15:32 | disposition home or self-care (01) | DRG 389 ==
LOC: ERS 10:04 → T4-A 14:49
PROVIDERS: ADMIT Internal Medicine; ATTEND Internal Medicine
DX: K56.600 Partial intestinal obstruction, unspecified as to cause (principal); M62.82 Rhabdomyolysis; R18.8 Other ascites; I10 Essential (primary) hypertension; G20 Parkinson's disease; G40.909 Epilepsy, unspecified, not intractable, without status epilepticus; F14.10 Cocaine abuse, uncomplicated; F10.90 Alcohol use, unspecified, uncomplicated; F25.9 Schizoaffective disorder, unspecified; Z87.891 Personal history of nicotine dependence
CPT/HCPCS: 36415; 36416; 74018; 74177; 80048; 80053; 80306; 82550; 83605; 83690; 83735; 85025; 96361; 96374; J2405; J7042; Q9967

== ENCOUNTER 2022-12-28 04:54 | Emergency (ER) | payer MEDICARE, OTHER ==
[2022-12-28 05:46] LABS: #Eosinphils 0.2 thou/uL (0.0-0.7); #Monocytes 0.4 thou/uL (0.11-0.59); #Neutrophils 2.2 thou/uL (1.40-6.50); %Eosinophils 3.9 % (0.0-10.0); %Lymphocytes 31.9 % (21.0-51.0); %Monocytes 9.1 % (0.0-10.0); %Neutrophils 53.9 % (42.0-75.0); Hematocrit 39.5 % (42.0-52.0); Hemoglobin 12.7 g/dL (14.0-18.0); Mean Corpuscular HGB CONC 32.2 g/dL (32.0-36.0); Mean Corpuscular Hemoglobin 31.3 pg (27.0-31.0); Mean Corpuscular Volume 97.3 fl (78.0-98.0); Mean Platelet Volume 9.6 fL (7.4-10.4); Platelet Count 185 10x3/uL (130-400); RBC Distribution Width 13.3 % (11.5-14.5); Red Blood Cell (RBC) Count 4.06 mill/uL (4.70-6.10); White Blood Cell (WBC) Count 4.1 10x3/uL (4.8-10.8)
[2022-12-28 06:13] LABS: Troponin I Less than 0.010 ng/mL (< 0.028)
[2022-12-28 06:14] LABS: ALT (SGPT) 25 U/L (8-55); AST (SGOT) 34 U/L (5-34); Acetaminophen Less than 10 mcg/mL (10.0-30.0); Albumin 3.8 g/dL (3.4-4.8); Alcohol Less than 10.0 mg/dL (Less than 10); Alkaline Phosphatase 51 U/L (40-110); Anion Gap 14 mmol/L (10-20); BUN (Urea Nitrogen) 15 mg/dL (8.4-25.7); Bilirubin, Total 0.6 mg/dL (0.2-1.2); CK (CPK) 864 U/L (30-200); Calc. Creatinine Clearance 0 mL/min (70-130); Calcium 9.6 mg/dL (7.8-10.44); Carbon Dioxide 27 mmol/L (23-31); Chloride 104 mmol/L (98-107); Estimated GFR 89; Globulin 2.5 g/dL (2.4-3.5); Glucose 88 mg/dL (83-110); Potassium 4.5 mmol/L (3.5-5.1); Protein, Total 6.3 g/dL (5.8-8.1); Salicylate Less than 8.0 mg/dL (15.0-30.0); Sodium 140 mmol/L (136-145)
[2022-12-28 09:05] LABS: Bacteria/HPF None Seen HPF (None Seen); Bilirubin Negative (Negative); Blood, Urine 1+ (Negative); CAUTI Indications for Culture Alt mental st,lethar; Clarity Clear (Clear); Glucose, Urine (Dipstick) Normal (Negative); Ketone, Urine Negative (Negative); Leukocyte Negative Leu/uL (Negative); Nitrite Negative (Negative); Protein, Urine (Dipstick) Negative (Neg-Trace); Specific Gravity, Urine 1.013 (1.002-1.036); Squamous Epithelial None Seen HPF (0-3); Urobilinogen Normal mg/dL (Less than 2); WBC/HPF 0-3 HPF (0-3)
[2022-12-28 09:10] LABS: Amphetamine Not Detected (NotDetected); Barbiturates Screen Not Detected (NotDetected); Benzodiazepine Screen Not Detected (NotDetected); Cocaine Metabolite Screen Detected (NotDetected); Methadone Not Detected (NotDetected); Methamphetamine Not Detected (NotDetected); Opiate Screen Not Detected (NotDetected); Oxycodone Screen Not Detected (NotDetected); Phencyclidine (PCP) Not Detected (NotDetected); THC/Cannabinoid Screen Not Detected (NotDetected); Tricyclic Screen Not Detected (NotDetected)
[2022-12-28 09:17] LABS: Urine Culture Reflex No No
== END 2022-12-28 10:20 | disposition home or self-care (01) ==
LOC: ERS 04:54
DX: E86.0 Dehydration (principal); I10 Essential (primary) hypertension; E10.9 Type 1 diabetes mellitus without complications; G40.909 Epilepsy, unspecified, not intractable, without status epilepticus; G20.A1 Parkinson's disease without dyskinesia, without mention of fluctuations; F17.210 Nicotine dependence, cigarettes, uncomplicated; Z59.00 Homelessness unspecified
CPT/HCPCS: 36415; 36416; 70450; 80053; 80306; 80307; 81001; 82550; 84484; 85025; 93005; 96360; 96361

== ENCOUNTER 2023-03-14 14:22 | Inpatient (IN) | payer MEDICARE, MEDICAID ==
[2023-03-14 18:54] LABS: Hematocrit 34.6 % (42.0-52.0); Hemoglobin 11.6 g/dL (14.0-18.0); Mean Corpuscular Hemoglobin 30.6 pg (27.0-31.0); Mean Corpuscular Volume 91.3 fl (78.0-98.0); Red Blood Cell (RBC) Count 3.79 mill/uL (4.70-6.10)
[2023-03-14 18:55] LABS: #Eosinphils 0.1 thou/uL (0.0-0.7); #Monocytes 0.4 thou/uL (0.11-0.59); #Neutrophils 3.6 thou/uL (1.40-6.50); %Basophils 0.6 % (0.0-1.0); %Eosinophils 1.6 % (0.0-10.0); %Monocytes 8.3 % (0.0-10.0); %Neutrophils 73.3 % (42.0-75.0); Mean Corpuscular HGB CONC 33.5 g/dL (32.0-36.0); Platelet Count 183 10x3/uL (130-400); RBC Distribution Width 13.2 % (11.5-14.5)
[2023-03-14 19:24] LABS: ALT (SGPT) 80 U/L (8-55); AST (SGOT) 199 U/L (5-34); Albumin 3.1 g/dL (3.4-4.8); Alkaline Phosphatase 50 U/L (40-110); Anion Gap 13 mmol/L (10-20); BUN (Urea Nitrogen) 9 mg/dL (8.4-25.7); Bilirubin, Total 0.7 mg/dL (0.2-1.2); Calc. Creatinine Clearance 0 mL/min (70-130); Calcium 8.3 mg/dL (7.8-10.44); Carbon Dioxide 26 mmol/L (23-31); Chloride 106 mmol/L (98-107); Estimated GFR 99; Globulin 2.3 g/dL (2.4-3.5); Glucose 75 mg/dL (83-110); Potassium 3.6 mmol/L (3.5-5.1); Protein, Total 5.4 g/dL (5.8-8.1); Sodium 141 mmol/L (136-145)
[2023-03-14 19:26] LABS: Acetaminophen Less than 10 mcg/mL (10.0-30.0); Alcohol Less than 10.0 mg/dL (Less than 10); Lipase 87 U/L (8-78); Salicylate Less than 8.0 mg/dL (15.0-30.0); Troponin I 0.017 ng/mL (< 0.028)
[2023-03-14 19:46] LABS: CK (CPK) 6515 U/L (30-200)
[2023-03-14] MEDS ORDERED: Vancomycin 1 GM/200 ML (FROZEN) BAG ONE (20:07)
[2023-03-14] MEDS ORDERED: Sodium Chloride 0.9% 100 ML ONE (20:07)
[2023-03-14] MEDS ORDERED: Cefepime 2 GM VIAL ONE (20:07)
[2023-03-14 21:06] LABS: Bacteria/HPF None Seen HPF (None Seen); Bilirubin Negative (Negative); Blood, Urine 3+ (Negative); CAUTI Indications for Culture Dysuria,urgency,freq; Clarity Clear (Clear); Glucose, Urine (Dipstick) Normal (Negative); Ketone, Urine Negative (Negative); Leukocyte Negative Leu/uL (Negative); Nitrite Negative (Negative); Protein, Urine (Dipstick) 50 mg/dL (Neg-Trace); Specific Gravity, Urine 1.018 (1.002-1.036); Squamous Epithelial 0-3 HPF (0-3); Urobilinogen Normal mg/dL (Less than 2); WBC/HPF 0-3 HPF (0-3); pH, Urine 5.5 (5.0-9.0)
[2023-03-14 21:08] LABS: Urine Culture Reflex No No
[2023-03-14 21:11] LABS: Amphetamine Not Detected (NotDetected); Barbiturates Screen Not Detected (NotDetected); Benzodiazepine Screen Not Detected (NotDetected); Cocaine Metabolite Screen Detected (NotDetected); Methadone Not Detected (NotDetected); Methamphetamine Not Detected (NotDetected); Opiate Screen Not Detected (NotDetected); Oxycodone Screen Not Detected (NotDetected); Phencyclidine (PCP) Not Detected (NotDetected); THC/Cannabinoid Screen Detected (NotDetected); Tricyclic Screen Not Detected (NotDetected)
[2023-03-14] MEDS ORDERED: Acetaminophen 325 MG TAB PO PRN (21:25)
[2023-03-14] MEDS ORDERED: Ondansetron PF 4 MG/2 ML Vial IVP PRN (21:25)
[2023-03-14] MEDS: Sodium Chloride 0.9% 1,000 ML IV SCH (23:10)
[2023-03-15] MEDS ORDERED: Vancomycin HCl 750 MG in Sodium Chloride 0.9% 250 ML 250 ML IVPB SCH (00:15)
[2023-03-15 00:32] VITALS: BMI 22.5
[2023-03-15] MEDS: Sodium Chloride 0.9% 1,000 ML IV SCH ×3 (05:24→21:01)
[2023-03-15] MEDS: Enoxaparin 40 MG (0.4 mL) SYRINGE SC SCH (09:13)
[2023-03-15 11:13] LABS: #Eosinphils 0.1 thou/uL (0.0-0.7); #Monocytes 0.5 thou/uL (0.11-0.59); #Neutrophils 2.5 thou/uL (1.40-6.50); %Basophils 0.8 % (0.0-1.0); %Eosinophils 2.6 % (0.0-10.0); %Monocytes 12.2 % (0.0-10.0); %Neutrophils 65.1 % (42.0-75.0); Hematocrit 35.2 % (42.0-52.0); Hemoglobin 11.4 g/dL (14.0-18.0); Mean Corpuscular HGB CONC 32.4 g/dL (32.0-36.0); Mean Corpuscular Hemoglobin 30.2 pg (27.0-31.0); Mean Corpuscular Volume 93.4 fl (78.0-98.0); Mean Platelet Volume 10.4 fL (7.4-10.4); Platelet Count 162 10x3/uL (130-400); RBC Distribution Width 13.3 % (11.5-14.5); Red Blood Cell (RBC) Count 3.77 mill/uL (4.70-6.10); White Blood Cell (WBC) Count 3.8 10x3/uL (4.8-10.8)
[2023-03-15 11:25] LABS: Hemoglobin A1c 5.9 % (4.0-6.0)
[2023-03-15 11:41] LABS: ALT (SGPT) 72 U/L (8-55); AST (SGOT) 154 U/L (5-34); Albumin 2.9 g/dL (3.4-4.8); Alkaline Phosphatase 45 U/L (40-110); Anion Gap 10 mmol/L (10-20); BUN (Urea Nitrogen) 9 mg/dL (8.4-25.7); Bilirubin, Total 0.7 mg/dL (0.2-1.2); CK (CPK) 3748 U/L (30-200); Calc. Creatinine Clearance 110 mL/min (70-130); Calcium 8.1 mg/dL (7.8-10.44); Carbon Dioxide 26 mmol/L (23-31); Chloride 107 mmol/L (98-107); Estimated GFR 98; Globulin 2.2 g/dL (2.4-3.5); Glucose 95 mg/dL (83-110); Potassium 3.7 mmol/L (3.5-5.1); Protein, Total 5.1 g/dL (5.8-8.1); Sodium 139 mmol/L (136-145)
[2023-03-15] MEDS: Vancomycin (BATCH) 1.25 GM in Premix 1 BAG IVPB SCH ×2 (12:47→23:17)
[2023-03-16] MEDS: Sodium Chloride 0.9% 1,000 ML IV SCH ×3 (05:19→21:18)
[2023-03-16] MEDS: Enoxaparin 40 MG (0.4 mL) SYRINGE SC SCH (08:52)
[2023-03-16 11:09] LABS: #Eosinphils 0.1 thou/uL (0.0-0.7); #Monocytes 0.4 thou/uL (0.11-0.59); #Neutrophils 2.7 thou/uL (1.40-6.50); %Basophils 0.5 % (0.0-1.0); %Lymphocytes 19.9 % (21.0-51.0); %Monocytes 9.7 % (0.0-10.0); %Neutrophils 67.6 % (42.0-75.0); Hematocrit 33.5 % (42.0-52.0); Hemoglobin 10.9 g/dL (14.0-18.0); Mean Corpuscular HGB CONC 32.5 g/dL (32.0-36.0); Mean Corpuscular Hemoglobin 30.4 pg (27.0-31.0); Mean Corpuscular Volume 93.3 fl (78.0-98.0); Mean Platelet Volume 10.5 fL (7.4-10.4); Platelet Count 164 10x3/uL (130-400); RBC Distribution Width 13.2 % (11.5-14.5); Red Blood Cell (RBC) Count 3.59 mill/uL (4.70-6.10); White Blood Cell (WBC) Count 3.9 10x3/uL (4.8-10.8)
[2023-03-16 11:34] LABS: Vancomycin, Trough 10.2 ug/mL
[2023-03-16 11:44] LABS: ALT (SGPT) 63 U/L (8-55); AST (SGOT) 106 U/L (5-34); Albumin 2.9 g/dL (3.4-4.8); Alkaline Phosphatase 48 U/L (40-110); Anion Gap 9 mmol/L (10-20); BUN (Urea Nitrogen) 9 mg/dL (8.4-25.7); Bilirubin, Total 0.2 mg/dL (0.2-1.2); CK (CPK) 2059 U/L (30-200); Calc. Creatinine Clearance 128 mL/min (70-130); Carbon Dioxide 26 mmol/L (23-31); Chloride 106 mmol/L (98-107); Estimated GFR 103; Globulin 2.2 g/dL (2.4-3.5); Glucose 91 mg/dL (83-110); Potassium 3.9 mmol/L (3.5-5.1); Protein, Total 5.1 g/dL (5.8-8.1); Sodium 137 mmol/L (136-145)
[2023-03-16] MEDS: Vancomycin (BATCH) 1.25 GM in Premix 1 BAG IVPB SCH ×2 (13:01→23:28)
[2023-03-16 23:52] VITALS: BP 142/73
[2023-03-17 00:48] VITALS: TEMP 98
[2023-03-17] MEDS: Sodium Chloride 0.9% 1,000 ML IV SCH ×2 (03:30→12:44)
[2023-03-17] MEDS: Enoxaparin 40 MG (0.4 mL) SYRINGE SC SCH (08:12)
[2023-03-17 10:39] LABS: #Eosinphils 0.1 thou/uL (0.0-0.7); #Monocytes 0.5 thou/uL (0.11-0.59); #Neutrophils 3.6 thou/uL (1.40-6.50); %Basophils 0.2 % (0.0-1.0); %Eosinophils 1.2 % (0.0-10.0); %Lymphocytes 14.9 % (21.0-51.0); %Monocytes 10.8 % (0.0-10.0); %Neutrophils 72.7 % (42.0-75.0); Hematocrit 34.5 % (42.0-52.0); Hemoglobin 11.1 g/dL (14.0-18.0); Mean Corpuscular HGB CONC 32.2 g/dL (32.0-36.0); Mean Corpuscular Hemoglobin 30.2 pg (27.0-31.0); Mean Platelet Volume 10.6 fL (7.4-10.4); Platelet Count 167 10x3/uL (130-400); RBC Distribution Width 13.2 % (11.5-14.5); Red Blood Cell (RBC) Count 3.67 mill/uL (4.70-6.10); White Blood Cell (WBC) Count 4.9 10x3/uL (4.8-10.8)
[2023-03-17 11:07] LABS: ALT (SGPT) 59 U/L (8-55); AST (SGOT) 83 U/L (5-34); Albumin 2.8 g/dL (3.4-4.8); Alkaline Phosphatase 45 U/L (40-110); Anion Gap 10 mmol/L (10-20); BUN (Urea Nitrogen) 10 mg/dL (8.4-25.7); Bilirubin, Total 0.3 mg/dL (0.2-1.2); CK (CPK) 1379 U/L (30-200); Calc. Creatinine Clearance 112 mL/min (70-130); Carbon Dioxide 25 mmol/L (23-31); Chloride 106 mmol/L (98-107); Estimated GFR 99; Globulin 2.3 g/dL (2.4-3.5); Glucose 78 mg/dL (83-110); Potassium 4.1 mmol/L (3.5-5.1); Protein, Total 5.1 g/dL (5.8-8.1); Sodium 137 mmol/L (136-145)
[2023-03-17] MEDS: Vancomycin (BATCH) 1.25 GM in Premix 1 BAG IVPB SCH (12:42)
[2023-03-17] MEDS ORDERED: Ziprasidone 20 MG CAP PO SCH (17:00)
[2023-03-18] MEDS ORDERED: FLU VACC QS2023(65UP)/MF59C/PF 60 MCG/0.5 ML SYRINGE IM ONE (09:00)
== END 2023-03-17 17:09 | disposition short-term general hospital (02) | DRG 558 ==
LOC: ERS 14:22 → T4-B 22:10
PROVIDERS: ADMIT Internal Medicine; ATTEND Emergency Medicine
DX: M62.82 Rhabdomyolysis (principal); Z59.02 Unsheltered homelessness; L03.116 Cellulitis of left lower limb; I50.22 Chronic systolic (congestive) heart failure; G40.909 Epilepsy, unspecified, not intractable, without status epilepticus; G20.A1 Parkinson's disease without dyskinesia, without mention of fluctuations; F20.9 Schizophrenia, unspecified; F17.210 Nicotine dependence, cigarettes, uncomplicated; K42.9 Umbilical hernia without obstruction or gangrene; L97.529 Non-pressure chronic ulcer of other part of left foot with unspecified severity; F14.10 Cocaine abuse, uncomplicated; I11.0 Hypertensive heart disease with heart failure; E10.649 Type 1 diabetes mellitus with hypoglycemia without coma
CPT/HCPCS: 36415; 36416; 70450; 71045; 80053; 80202; 80306; 80307; 81001; 82550; 83036; 83605; 83690; 83880; 84484; 85025; 87040; 87324; 87449; 93005; 93970; 96365; 96367; J0692; J1650; J3370; J3370-JW; J3490; J7050